=== PATIENT | male | born 1960 | race Caucasian/White ===

== ENCOUNTER 2022-08-09 18:49 | Observation (INO) | payer BC, SELFPAY ==
--- NOTE | 2022-08-09 | ECG_ITS ---
Test Reason : DIZZINESS Blood Pressure : / mmHG Vent. Rate : 072 BPM Atrial Rate : 072 BPM P-R Int : 152 ms QRS Dur : 088 ms QT Int : 404 ms P-R-T Axes : 062 063 040 degrees QTc Int : 442 ms Normal sinus rhythm Normal ECG When compared with ECG of 02-DEC-2013 09:47, No significant change was found Referred By: Generic ED Physician Electronically Signed By:MASON VELASQUEZ MD
--- NOTE | ~2022-08-09 | CT_ITS ---
EXAMINATION: CT HEAD WITHOUT CONTRAST CLINICAL INFORMATION: Altered mental status. COMPARISON: None. TECHNIQUE: Contiguous axial imaging was performed from the skull base to vertex without intravenous administration of contrast. This CT examination was performed using dose optimization techniques as appropriate, variously including the following: *Automated exposure control *Adjustment of mA and/or kV according to patient size (this includes techniques or standardized protocols for targeted exams where dose is matched to indication/reason for exam; i.e. extremities or head) *Use of iterative reconstruction technique DLP: 684 mGy-cm FINDINGS: Age indeterminate hypodensities in the bilateral basal ganglia, largest measuring 0.8 cm on the right side (5:169). There is no evidence of acute intracranial hemorrhage or edematous territorial infarction. Scattered hypoattenuation in the periventricular and deep white matter are consistent with moderate microangiopathy. Cantrell-white matter differentiation is preserved. Proportional prominence of the ventricles and sulcal spaces. No evidence for obstructive hydrocephalus. No abnormal mass effect or midline shift. No extra-axial fluid collections. Nonspecific focal skin nodule in the right high frontal scalp (7:61). No acute osseous abnormalities. Mucosal thickening of the frontal sinuses and ethmoid air cells. No air-fluid levels. The mastoids and middle ear cavities are clear. CT/CT head/brain wo IV con IMPRESSION: 1. Age indeterminate small hypodensities in the bilateral basal ganglia. If an acute cerebrovascular accident is suspected, recommend correlation with an MR of the brain. 2. No acute intracranial hemorrhage or edematous territorial infarction. 3. Indeterminate focal nodular-like skin thickening in the right high frontal scalp, recommend correlation with physical examination.
--- NOTE | ~2022-08-09 | CT_ITS ---
EXAMINATION: CT ANGIOGRAM HEAD CT ANGIOGRAM NECK CLINICAL INFORMATION: dizziness COMPARISON: None. TECHNIQUE: Initial noncontrast nursing educator imaging of the head and neck was performed. Comparison is made with noncontrast head CT from earlier today. Test bolus sequences followed by intravenous administration 70 mL of Omnipaque 350. Helical imaging was performed in the axial plane from the aortic arch to the skull vertex. Delayed postcontrast imaging of the head was also performed. The data was processed at the lead technologist in cytogenetics's workstation for generation of MIP sequences. Angled MIPs and volume rendered reformatted images were also generated at an offline 3D workstation. Stenoses are assessed in accordance with NASCET criteria unless otherwise indicated. This CT examination was performed using dose optimization techniques as appropriate, variously including the following: *Automated exposure control *Adjustment of mA and/or kV according to patient size (this includes techniques or standardized protocols for targeted exams where dose is matched to indication/reason for exam; i.e. extremities or head) *Use of iterative reconstruction technique DLP: 1531.8 mGy-cm mGy-cm FINDINGS: CT HEAD: Noncontrast head CT findings are discussed separately. No pathologic intra-axial enhancement within limitations of CT or regional oligemia. CTA HEAD: Limited examination due to arteriovenous timing of contrast bolus. The internal carotid arteries are patent with minimal calcific plaque along the right distal cavernous/supraclinoid and left supraclinoid internal carotid arteries. 1.2 mm posteriorly projecting vascular protrusion arising from the distal communicating left ICA with a vessel arising from its apex, likely infundibular origin of the anterior choroidal artery. The MCA vascular complexes are normal bilaterally. Dominant right A1 segment with a congenitally hypoplastic/aplastic left A1 segment. The intradural vertebral arteries are patent. The basilar artery is normal. The posterior cerebral arteries are widely patent. No proximal large vessel occlusion. No aneurysms and no high flow vascular malformations. No evidence of dural arteriovenous fistula. Timing of the contrast bolus allows assessment of the major dural venous sinuses, which all opacify normally CTA NECK: Classic 3 vessel branching pattern of the aortic arch. Origins of the great vessels are widely patent. The common carotid arteries are widely patent, noting mild eccentric fibrofatty plaque along the mid to distal segments. Mild fibrofatty plaque at the bilateral common carotid bifurcations extending into the right greater than left carotid bulbs without hemodynamically significant stenosis. The left vertebral artery is dominant. There is fibrofatty plaque contributing to focal severe stenosis of the right V1 segment and mild luminal narrowing of the left at V1 segment, with otherwise normal contrast opacification along the extracranial vertebral arteries. CT NECK: Dentulous maxillary alveolar ridge. Carious left mandibular canine tooth with periapical lucency. Symmetric lobulated soft tissue along the base of tongue likely normal tonsillar tissue with tonsillith on the left. Left-sided vallecular cysts contacting the left lingual surface of the epiglottis. 5 mm lobulated enhancing soft tissue is seen along the right aspect of the right glossoepiglottic fold and lingual surface of the right epiglottis, which can be correlated with direct visual inspection (image 746, series 6). Symmetric medialization of the right aryepiglottic fold and prominence of the right pyriform sinus without asymmetric prominence of the right laryngeal vestibule as would be expected in right vocal cord paresis. The salivary glands are unremarkable. The thyroid gland is unremarkable. No pathologically enlarged cervical chain lymph nodes. There is mild chronic height loss of the C6 vertebral body. Multilevel cervical spondylosis with varying degrees of moderate to high-grade neural foraminal narrowing. Centrilobular and paraseptal emphysema. CT/CT angio head neck IMPRESSION: 1. Eccentric fibrofatty plaque contributing to focal severe stenosis of the right V1 and mild luminal narrowing of the left V1 vertebral arteries, otherwise no significant craniocervical steno-occlusive disease. 2. 5 mm enhancing soft tissue is seen along the right aspect of the right glossoepiglottic fold and lingual surface of the right epiglottis can be correlated with direct visual inspection. 3. Carious left mandibular canine tooth with periapical lucency. Recommend correlation with dental exam. 4. Emphysema.
--- NOTE | ~2022-08-09 | MR_ITS ---
EXAMINATION: MR BRAIN WITHOUT CONTRAST CLINICAL INFORMATION: Cerebrovascular accident. COMPARISON: CTA head and neck from 08/09/2022. TECHNIQUE: MRI of the brain was obtained using routine sequences without contrast. FINDINGS: No focal restricted diffusion is demonstrated to suggest acute or subacute cerebral ischemia. There is a region of chronic encephalomalacia centered within the right steen radiata and basal ganglia with hemosiderin staining. Additional chronic lacunar infarcts of the bilateral lentiform nuclei and left thalamus. No evidence of acute hemorrhagic products on heme-sensitive imaging. Scattered and partially confluent periventricular, deep white matter, and brainstem T2 FLAIR hyperintensities consistent with moderate underlying microangiopathy. Ex vacuo dilatation of the frontal horn of the right lateral ventricle. Otherwise, proportional prominence of the ventricles and sulcal spaces without evidence of obstructive hydrocephalus. No abnormal mass effect. No midline shift. Normal appearance of the pituitary gland. Normal positioning of the cerebellar tonsils. Normal arterial and venous vascular flow voids are present. Normal, homogeneous marrow signal. Mild mucosal thickening of the paranasal sinuses. No signal abnormalities within the mastoids. MR/MR head/brain wo con IMPRESSION: 1. No acute intracranial abnormalities. 2. Chronic encephalomalacia of the right steen radiata/basal ganglia with hemosiderin staining. Additional small chronic lacunar infarcts of the deep nuclei. Moderate underlying microangiopathy and generalized cerebral volume loss.
--- NOTE | ~2022-08-09 | US_ITS ---
EXAMINATION: US EXTRACRANIAL CAROTID DUPLEX, BILATERAL CLINICAL INFORMATION: Dizziness with vertebral artery stenosis on CTA COMPARISON: CTA from 08/17/2022 TECHNIQUE: Real-time ultrasound and Doppler techniques (integrating B-mode 2-D vascular images, Doppler spectral analysis and color-flow Doppler imaging) were utilized to interrogate the extracranial carotid arteries, the vertebral arteries and proximal subclavian arteries bilaterally. The degree of stenosis is determined by criteria similar to NASCET. FINDINGS: Right Side: 1. There is minimal atherosclerotic plaque seen in the bifurcation/proximal ICA region. 2. The common carotid artery PSV proximally is 79.5 cm/s and distally 74.7 cm/s. 3. The proximal internal carotid artery velocities are 51.1 cm/s systolic and 17.2 cm/s diastolic. 4. The proximal external carotid artery PSV is 94.4 cm/s. 5. The vertebral artery shows antegrade flow. Velocity in the proximal segment measures 42.8 cm/s. Flow within the mid and distal segments are markedly dampened and decreased with velocities measuring 10.1 cm/s 6. The subclavian artery waveforms are normal. Left Side: 1. There is no significant atherosclerotic plaque seen in the bifurcation/proximal ICA region. 2. The common carotid artery PSV proximally is 91.3 cm/s and distally 75.2 cm/s. 3. The proximal internal carotid artery velocities are 70.8 cm/s systolic and 23.0 cm/s diastolic. 4. The proximal external carotid artery PSV is 96.9 cm/s. 5. The vertebral artery shows antegrade flow. Normal velocities and waveforms seen throughout the vertebral artery with peak systolic velocity measuring 81 cm/s. 6. The subclavian artery waveforms are normal. US/US carotid duplex BI IMPRESSION: 1. RIGHT: Minimal, non-hemodynamically significant stenosis of the proximal right internal carotid artery corresponding to a 0-49% stenosis by velocity criteria. 2. LEFT: Normal left internal carotid artery without atherosclerotic plaque or hemodynamically significant stenosis. 3. Markedly dampened waveforms and velocities seen in the mid and distal segments of the right vertebral artery consistent with nonvisualized severe stenosis more proximally. Normal waveforms and velocities seen in the left vertebral artery
--- NOTE | ~2022-08-09 | XR_ITS ---
EXAMINATION: XR CHEST CLINICAL INFORMATION: Chest pain COMPARISON: None TECHNIQUE: 2 views of the chest were obtained. FINDINGS: No significant abnormality is noted involving the heart, lungs, mediastinum, bony thorax or soft tissues. XR/XR chest 2V IMPRESSION: Unremarkable chest examination.
[2022-08-09 19:51] VITALS: BP 186/99; PULSE 66; RESP 16; TEMP 37; O2SAT 96; BMI 25.7
--- NOTE | 2022-08-09 20:02 | ED.GENADULT ---
HPI - General Adult General Chief complaint: Dizziness Stated complaint: Dizziness sent by primary care DR Time Seen by Provider: 08/09/22 21:00 Related Data Home Medications Medication Instructions Recorded Confirmed omeprazole 20 mg capsule,delayed 1 cap PO DAILY 08/10/22 08/10/22 release warfarin 5 mg tablet 7.5 mg PO DAILY 08/10/22 08/10/22 Allergies Allergy/AdvReac Type Severity Reaction Status Date / Time lisinopril [From ZESTRIL] Allergy Unknown UNK Unverified 02/25/20 16:27 [facility] Past Medical History Medical History GERD (gastroesophageal reflux disease) Hypercoagulable state Social History Social History Household Members: Significant Other Housing: House Do you presently have visiting nurse or other home services: No Alcohol intake: never Patient Tobacco Use Status: Current everyday Tobacco user Tobacco use type: Cigarette Cigarette Packs Per Day: 1 Cigarettes Per Day: 20.0 Years Smoked: 50 Substance Use Type: Marijuana Physical Exam ED Vital Signs: Vital Signs - 24 hr 08/09/22 19:51 Temperature 98.6 F Pulse Rate 66 Respiratory Rate 16 Blood Pressure 186/99 H Pulse Oximetry 96 Oxygen Delivery Method Room Air BMI result Body Mass Index 25.7 Course Course Course Narrative: 62-year-old male presents for evaluation of dizziness that started yesterday. He denies feeling the room is spinning, denies history of vertigo. He is ambulatory but feels that he cannot walk in a straight line. No focal neuro deficits. Plan for labs, EKG further workup as indicated Medications Administered Discontinued Medications Generic Name Dose Route Start Last Admin Trade Name Freq PRN Reason Stop Dose Admin Iohexol 85 ml 08/09/22 23:26 08/09/22 23:27 Iohexol 350 Mg/Ml 100 Ml Infus..Btl IV 08/09/22 23:27 85 ml ONCE ONE Administration Sodium Chloride 3 ml 08/10/22 08:00 08/10/22 09:59 0.9 % Sodium Chloride Flush 3 Ml Syringe IVFLUSH Not Given [facility] Medical Decision Making Lab Data 08/10/22 05:26 08/10/22 05:26 Labs: Lab Results 08/09/22 08/09/22 08/09/22 Range/Units 20:23 20:23 21:13 WBC 9.7 (4.8-10.8) X10*3/uL RBC 5.90 H (4.60-5.80) X10*6/uL Hgb 17.8 (14.0-18.0) g/dl Hct 54.5 H (42.0-52.0) % MCV 92.4 (80.0-98.0) fL MCH 30.2 (27.0-33.0) pg MCHC 32.7 (31.0-36.0) g/dl RDW 13.8 (11.0-16.0) % Plt Count 224 (160-400) X10*3/uL MPV 9.7 (9.4-12.4) fL Immature Gran % (Auto) 0.3 (0.0-0.4) % Neut % (Auto) 62.2 (45-73) % Lymph % (Auto) 27.7 (20-40) % [place] % (Auto) 6.0 (2-11) % Eos % (Auto) 2.8 (0-4) % Baso % (Auto) 1.0 (0-2) % Lymph # (Auto) 2.7 (1.2-4.9) X10*3/uL [place] # (Auto) 0.6 (0.1-1.2) X10*3/uL Eos # (Auto) 0.3 (0.0-0.4) X10*3/uL Baso # (Auto) 0.1 (0.0-0.2) X10*3/uL Abs Immat Gran (auto) 0.03 (0.00-0.03) X10*3/uL Absolute Neuts (auto) 6.0 (2.0-8.3) x10*3/uL Absolute Nucleated RBC 0.000 (0.0-0.012) X10*3/uL Nucleated RBC % (auto) 0.0 (0.0-0.2) /100WBC PT 26.1 H (10.0-13.1) SEC INR 2.2 H (0.9-1.1) APTT 43.7 H (26.0-36.4) SEC Sodium (135-145) mmol/L Potassium (3.3-5.1) mmol/L Chloride (96-108) mmol/L Carbon Dioxide (22-29) mmol/L Anion Gap (12-20) BUN (9-16) mg/dL Creatinine (0.5-1.4) mg/dL Estim Creat Clear Calc Estimated GFR Random Glucose (60-115) mg/dL Calcium (8.4-10.2) mg/dL Magnesium (1.6-2.6) mg/dL Total Bilirubin (0.0-1.0) mg/dL AST (5-37) U/L ALT (0-40) U/L Alkaline Phosphatase (39-117) U/L Troponin I High Sens < 3.5 (<3.5-35.0) ng/L Total Protein (6.5-8.0) g/dL Albumin (3.5-5.0) g/dL Lipase (8-78) U/L 08/09/22 Range/Units 21:53 WBC (4.8-10.8) X10*3/uL RBC (4.60-5.80) X10*6/uL Hgb (14.0-18.0) g/dl Hct (42.0-52.0) % MCV (80.0-98.0) fL MCH (27.0-33.0) pg MCHC (31.0-36.0) g/dl RDW (11.0-16.0) % Plt Count (160-400) X10*3/uL MPV (9.4-12.4) fL Immature Gran % (Auto) (0.0-0.4) % Neut % (Auto) (45-73) % Lymph % (Auto) (20-40) % [place] % (Auto) (2-11) % Eos % (Auto) (0-4) % Baso % (Auto) (0-2) % Lymph # (Auto) (1.2-4.9) X10*3/uL [place] # (Auto) (0.1-1.2) X10*3/uL Eos # (Auto) (0.0-0.4) X10*3/uL Baso # (Auto) (0.0-0.2) X10*3/uL Abs Immat Gran (auto) (0.00-0.03) X10*3/uL Absolute Neuts (auto) (2.0-8.3) x10*3/uL Absolute Nucleated RBC (0.0-0.012) X10*3/uL Nucleated RBC % (auto) (0.0-0.2) /100WBC PT (10.0-13.1) SEC INR (0.9-1.1) APTT (26.0-36.4) SEC Sodium 142 (135-145) mmol/L Potassium 3.9 (3.3-5.1) mmol/L Chloride 107 (96-108) mmol/L Carbon Dioxide 23 (22-29) mmol/L Anion Gap 16 (12-20) BUN 15 (9-16) mg/dL Creatinine 1.02 (0.5-1.4) mg/dL Estim Creat Clear Calc 89.5 Estimated GFR > 60 Random Glucose 82 (60-115) mg/dL Calcium 8.8 (8.4-10.2) mg/dL Magnesium 2.0 (1.6-2.6) mg/dL Total Bilirubin 0.6 (0.0-1.0) mg/dL AST 13 (5-37) U/L ALT 9 (0-40) U/L Alkaline Phosphatase 110 (39-117) U/L Troponin I High Sens (<3.5-35.0) ng/L Total Protein 6.7 (6.5-8.0) g/dL Albumin 4.2 (3.5-5.0) g/dL Lipase 42 (8-78) U/L Discharge Plan Discharge Clinical Impression: Dizziness Patient Disposition: Admitted As Inpatient Interventions: Admission Worksheet (ED) Last Done: 08/10/22 09:17 Discharge Date/Time: 08/10/22 09:17
[2022-08-09 20:29] LABS: MANUAL DIFF FLAG NO
[2022-08-09 20:31] LABS: Basophils Absolute Auto 0.1 X10*3/uL (0.0-0.2); Eosinophils Absolute Auto 0.3 X10*3/uL (0.0-0.4); Eosinophils Percent Auto 2.8 % (0-4); Hematocrit 54.5 % (42.0-52.0); Hemoglobin 17.8 g/dl (14.0-18.0); Imm Gran Abs Auto 0.03 X10*3/uL (0.00-0.03); Imm Gran Pct Auto 0.3 % (0.0-0.4); Lymphocytes Absolute Auto 2.7 X10*3/uL (1.2-4.9); Lymphocytes Percent Auto 27.7 % (20-40); Mean Corpuscular HGB Conc 32.7 g/dl (31.0-36.0); Mean Corpuscular Hemoglobin 30.2 pg (27.0-33.0); Mean Corpuscular Volume 92.4 fL (80.0-98.0); Mean Platelet Volume 9.7 fL (9.4-12.4); Monocytes Absolute Auto 0.6 X10*3/uL (0.1-1.2); Neutrophils Percent Auto 62.2 % (45-73); Platelet Count 224 X10*3/uL (160-400); Red Cell Distribution Width 13.8 % (11.0-16.0); White Blood Count 9.7 X10*3/uL (4.8-10.8)
[2022-08-09 20:57] LABS: Troponin-I High Sensitivity < 3.5 ng/L (<3.5-35.0)
[2022-08-09 21:15] VITALS: BP 149/82; PULSE 59
[2022-08-09 21:16] VITALS: BP 159/91; PULSE 64
[2022-08-09 21:18] VITALS: BP 152/95; PULSE 78
[2022-08-09 21:20] VITALS: BP 165/98; PULSE 70; RESP 15; TEMP 36.7; O2SAT 98
--- NOTE | 2022-08-09 21:23 | MHC.EDTECH ---
pt repeated labs drawn and sent to lab ,orthostatics vitals sign done ,pt watching television ,pt at bedside ,this pct offer pt warm blanket , But pt said he was ok .
[2022-08-09 21:24] LABS: INTERNATIONAL NORM RATIO 2.2 (0.9-1.1); Prothrombin Time 26.1 SEC (10.0-13.1)
[2022-08-09 21:26] LABS: Partial Thromboplastin Time 43.7 SEC (26.0-36.4)
[2022-08-09 22:23] LABS: Alanine Aminotransferase 9 U/L (0-40); Albumin Level 4.2 g/dL (3.5-5.0); Alkaline Phosphatase 110 U/L (39-117); Anion Gap 16 (12-20); Aspartate Amino Transferase 13 U/L (5-37); Bilirubin Total 0.6 mg/dL (0.0-1.0); Blood Urea Nitrogen 15 mg/dL (9-16); Calcium 8.8 mg/dL (8.4-10.2); Carbon Dioxide 23 mmol/L (22-29); Chloride 107 mmol/L (96-108); Creatinine Clr Calc Pharmacy 89.5; Estimated Glomerular Filt Rate > 60; Glucose Random 82 mg/dL (60-115); Lipase 42 U/L (8-78); Potassium 3.9 mmol/L (3.3-5.1); Sodium 142 mmol/L (135-145); Total Protein 6.7 g/dL (6.5-8.0)
[2022-08-09] MEDS: iohexoL 350 MG/ML 100 ML INFUS..BTL 85 ML IV (23:27)
[2022-08-09 23:47] VITALS: BP 151/98; PULSE 69; RESP 24; TEMP 37; O2SAT 98
--- NOTE | 2022-08-10 00:40 | ED_ITS ---
HPI - Dizziness General Chief Complaint: Dizziness Stated Complaint: Dizziness sent by primary care Time Seen by Provider: 08/09/22 21:00 History of Present Illness HPI Narrative: Patient is a 62-year-old male with a history of antithrombin 3 currently on warfarin presented today with having dizziness. Patient claims the dizziness makes him fall easily. Not exactly spinning. Feels not quite right. Patient claims the symptoms started approximately 36 hours ago. Been compliant with his medication. No chest pain or shortness of breath. No nausea no vomiting. No focal weakness. No changes in medication. No change in dose of medication. Related Data Allergies Allergy/AdvReac Type Severity Reaction Status Date / Time lisinopril [From ZESTRIL] Allergy Unknown UNK Unverified 02/25/20 16:27 ABT Allergy Unknown UNKNOWN Uncoded 02/25/20 16:27 Review of Systems Review of Systems: Positive dizziness Yes all other systems are reviewed and are negative PMFSH Past Medical History Attestation statement: The following information was validated with the patient. Social History Social History Advance Directives: No Advance Directives Information Provided: No Physical Exam Vital Signs: Vital Signs: Last Vital Signs Temp 98.6 F 08/09/22 23:47 Pulse 69 08/09/22 23:47 Resp 24 H 08/09/22 23:47 BP 151/98 H 08/09/22 23:47 Pulse Ox 98 08/09/22 23:47 O2 Del Method 08/09/22 23:47 BMI result Body Mass Index 25.7 Appearance: Alert. Oriented X3. No acute distress. Eyes: Pupils equal, round and reactive to light. ENT: Pharynx normal. Neck: Normal inspection. Neck supple. No lymph nodes noted. No crepitus CVS: Normal heart rate and rhythm. Pulses normal. Normal S1 and S2 Respiratory: No respiratory distress. Breath sounds normal. No Wheezing. No rales Abdomen: Soft and nontender. No rigidity. No distention. good BS x4 Skin: Skin warm and dry. Normal skin color. Normal skin turgor. Extremities: No lower extremity edema. Neurovascular intact to all extremities. No Lacerations. No Rash Neuro: Oriented X 3. No motor deficit. No sensory deficit. Moving all extermities. No slurred speech NIH Stroke Scale Internal: Initial- Upon Arrival Time: 00:46 Level of Consciousness: Alert Level of Consciousness Questions: Answers both questions correctly Level of Consciousness Commands: Performs both tasks correctly Best Gaze: Normal Visual: No visual loss Facial Palsy: Normal Motor Arm (Right): No drift Motor Arm (Left): No drift Motor Leg (Right): No drift Motor Leg (Left): No drift Limb Ataxia: Absent Sensory: Normal Best Language: No aphasia Dysarthia: Normal Extinction and Inattention: No abnormality Score: 0 Medications Administered Discontinued Medications Generic Name Dose Route Start Last Admin Trade Name Khoa PRN Reason Stop Dose Admin Iohexol 85 ml 08/09/22 23:26 08/09/22 23:27 Iohexol 350 Mg/Ml 100 Ml Infus..Btl IV 08/09/22 23:27 85 ml ONCE ONE Administration Medical Decision Making Medical Decision Making [facility] Narrative: Patient's NIH stroke scale was 0. Has dizziness. On exam there is question finger-nose abnormality noted. CT scan of the head was grossly negative for any acute evidence of bleeding. CTA of the head and neck showed possible vertebral stenosis. Question posterior circulation issues. Patient not a candidate for tPA as he is therapeutic on Coumadin symptoms greater than 30 hours. Patient not a candidate for endovascular treatment retrieval as no large vessel o cclusion noted. Patient's symptoms greater than 24 hours. Will admit patient for further evaluation. CT scan showed no evidence of bleeding. No evidence of fracture. Patient is neurologically intact. Consult Healthcare Provider Management of the patient was discussed with: Hospitalist Lab Data [facility] Lab Attestation statement: I reviewed the patient's lab results. 08/09/22 20:23 08/09/22 21:53 Labs: Lab Results 08/09/22 08/09/22 08/09/22 Range/Units 20:23 20:23 21:13 WBC 9.7 (4.8-10.8) X10*3/uL RBC 5.90 H (4.60-5.80) X10*6/uL Hgb 17.8 (14.0-18.0) g/dl Hct 54.5 H (42.0-52.0) % MCV 92.4 (80.0-98.0) fL MCH 30.2 (27.0-33.0) pg MCHC 32.7 (31.0-36.0) g/dl RDW 13.8 (11.0-16.0) % Plt Count 224 (160-400) X10*3/uL MPV 9.7 (9.4-12.4) fL Immature Gran % (Auto) 0.3 (0.0-0.4) % Neut % (Auto) 62.2 (45-73) % Lymph % (Auto) 27.7 (20-40) % [place] % (Auto) 6.0 (2-11) % Eos % (Auto) 2.8 (0-4) % Baso % (Auto) 1.0 (0-2) % Lymph # (Auto) 2.7 (1.2-4.9) X10*3/uL [place] # (Auto) 0.6 (0.1-1.2) X10*3/uL Eos # (Auto) 0.3 (0.0-0.4) X10*3/uL Baso # (Auto) 0.1 (0.0-0.2) X10*3/uL Abs Immat Gran (auto) 0.03 (0.00-0.03) X10*3/uL Absolute Neuts (auto) 6.0 (2.0-8.3) x10*3/uL Absolute Nucleated RBC 0.000 (0.0-0.012) X10*3/uL Nucleated RBC % (auto) 0.0 (0.0-0.2) /100WBC PT 26.1 H (10.0-13.1) SEC INR 2.2 H (0.9-1.1) APTT 43.7 H (26.0-36.4) SEC Sodium (135-145) mmol/L Potassium (3.3-5.1) mmol/L Chloride (96-108) mmol/L Carbon Dioxide (22-29) mmol/L Anion Gap (12-20) BUN (9-16) mg/dL Creatinine (0.5-1.4) mg/dL Estim Creat Clear Calc Estimated GFR Random Glucose (60-115) mg/dL Calcium (8.4-10.2) mg/dL Magnesium (1.6-2.6) mg/dL Total Bilirubin (0.0-1.0) mg/dL AST (5-37) U/L ALT (0-40) U/L Alkaline Phosphatase (39-117) U/L Troponin I High Sens < 3.5 (<3.5-35.0) ng/L Total Protein (6.5-8.0) g/dL Albumin (3.5-5.0) g/dL Lipase (8-78) U/L 08/09/22 Range/Units 21:53 WBC (4.8-10.8) X10*3/uL RBC (4.60-5.80) X10*6/uL Hgb (14.0-18.0) g/dl Hct (42.0-52.0) % MCV (80.0-98.0) fL MCH (27.0-33.0) pg MCHC (31.0-36.0) g/dl RDW (11.0-16.0) % Plt Count (160-400) X10*3/uL MPV (9.4-12.4) fL Immature Gran % (Auto) (0.0-0.4) % Neut % (Auto) (45-73) % Lymph % (Auto) (20-40) % [place] % (Auto) (2-11) % Eos % (Auto) (0-4) % Baso % (Auto) (0-2) % Lymph # (Auto) (1.2-4.9) X10*3/uL [place] # (Auto) (0.1-1.2) X10*3/uL Eos # (Auto) (0.0-0.4) X10*3/uL Baso # (Auto) (0.0-0.2) X10*3/uL Abs Immat Gran (auto) (0.00-0.03) X10*3/uL Absolute Neuts (auto) (2.0-8.3) x10*3/uL Absolute Nucleated RBC (0.0-0.012) X10*3/uL Nucleated RBC % (auto) (0.0-0.2) /100WBC PT (10.0-13.1) SEC INR (0.9-1.1) APTT (26.0-36.4) SEC Sodium 142 (135-145) mmol/L Potassium 3.9 (3.3-5.1) mmol/L Chloride 107 (96-108) mmol/L Carbon Dioxide 23 (22-29) mmol/L Anion Gap 16 (12-20) BUN 15 (9-16) mg/dL Creatinine 1.02 (0.5-1.4) mg/dL Estim Creat Clear Calc 89.5 Estimated GFR > 60 Random Glucose 82 (60-115) mg/dL Calcium 8.8 (8.4-10.2) mg/dL Magnesium 2.0 (1.6-2.6) mg/dL Total Bilirubin 0.6 (0.0-1.0) mg/dL AST 13 (5-37) U/L ALT 9 (0-40) U/L Alkaline Phosphatase 110 (39-117) U/L Troponin I High Sens (<3.5-35.0) ng/L Total Protein 6.7 (6.5-8.0) g/dL Albumin 4.2 (3.5-5.0) g/dL Lipase 42 (8-78) U/L Independent Interpretation I performed an independent interpretation of an: EKG Interpretation: My interpretation patient's EKG showed a sinus pattern heart rate is 70 LA QRS QTC within normal limits there is no acute ST segment elevation noted Radiology Impression Discussion of test interpretation with radiology: I have reviewed the radiologist's reading. Independent Historian Clinical information obtained from an independent historian. History obtained from or confirmed by: Spouse External Record Review External record reviewed: Inpatient record Chronic Conditions Antithrombin 3 Discharge Plan Discharge Clinical Impression: Dizziness Patient Disposition: Admitted As Inpatient
--- NOTE | 2022-08-10 00:43 | PM.IMHP ---
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 Patient states it started abruptly on the day of presentation. He has had episodes of dizziness years ago but the only lasted for a while. This time patient states that it lasted for almost the whole day and hence he decided to present to the ER. Had difficulty walking due to the dizziness. No vertigo. No syncope or seizure. Patient states this has never happened before. He is compliant with warfarin. No focal extremity weakness or facial droop. Patient denies fever, chills, chest discomfort, palpitations, shortness of breath, abdominal pain, changes in urinary or bowel habits. In the emergency department, CTA with focal severe stenosis of right V1 Review of Systems Constitutional: Constitutional: Reports no additional constitutional complaints ENT: Reports dizziness Cardiovascular: Cardiovascular: Reports no additional cardiovascular complaints Respiratory: Respiratory: Reports no additional respiratory complaints Gastrointestinal: Gastrointestinal: Reports no additional gastrointestinal complaints Genitourinary: Genitourinary: Reports no additional male genitourinary complaints Neurologic: Reports dizziness PMFSH Medical History GERD (gastroesophageal reflux disease) Hypercoagulable state Pertinent family history: No family history of CAD Social History Advance Directives: No Advance Directives Information Provided: No Meds Allergies Allergy/AdvReac Type Severity Reaction Status Date / Time lisinopril [From ZESTRIL] Allergy Unknown UNK Unverified 02/25/20 16:27 ABT Allergy Unknown UNKNOWN Uncoded 02/25/20 16:27 Active Medications: Current Medications Acetaminophen (Acetaminophen 325 Mg Tablet) 650 mg PO Q6H PRN PRN Reason: Pain, Mild (Pain Scale 1-3) Melatonin (Melatonin 3 Mg Tablet) 6 mg PO BEDTIME PRN PRN Reason: Insomnia Ondansetron HCl (Ondansetron Hcl 4 Mg/2 Ml Vial) 4 mg IVPUSH Q8H PRN PRN Reason: Nausea and Vomiting Pharmacy Consult (Consult Rx Perform Med Rec) 1 each MISCELLANE ONCE PRN PRN Reason: Consult order Sodium Chloride (0.9 % Sodium Chloride Flush 3 Ml Syringe) 3 ml IVFLUSH QSHIFT SAPNA Physical Exam Vital Signs and Narrative: Vital Signs: Last Vital Signs Temp 98.6 F 08/09/22 23:47 Pulse 69 08/09/22 23:47 Resp 24 H 08/09/22 23:47 BP 151/98 H 08/09/22 23:47 Pulse Ox 98 08/09/22 23:47 O2 Del Method 08/09/22 23:47 BMI result Body Mass Index 25.7 Middle-aged male lying in bed in no distress Neck supple, no JVD Regular rate and rhythm, S1-S2 heard Regular breath sounds bilaterally, no wheezing or crackles appreciated Abdomen soft nontender, no guarding, no rigidity Patient is awake, alert and oriented to self, place, time and person ; no nystagmus, no dysdiadochokinesia, mild abnormality [id number] on the right upper extremity, no hypertonia, no facial droop, strength equal in bilateral upper and lower extremity, tongue and uvula midline Psych: Normal mood No pedal edema Results Labs 08/09/22 20:23 08/09/22 21:53 Labs: Laboratory Results - last 24 hr 08/09/22 08/09/22 08/09/22 20:23 20:23 21:13 MCV 92.4 MCH 30.2 MCHC 32.7 RDW 13.8 Plt Count 224 MPV 9.7 Immature Gran % (Auto) 0.3 Neut % (Auto) 62.2 Lymph % (Auto) 27.7 [place] % (Auto) 6.0 Eos % (Auto) 2.8 Baso % (Auto) 1.0 Lymph # (Auto) 2.7 [place] # (Auto) 0.6 Eos # (Auto) 0.3 Baso # (Auto) 0.1 Abs Immat Gran (auto) 0.03 Absolute Neuts (auto) 6.0 Absolute Nucleated RBC 0.000 Nucleated RBC % (auto) 0.0 PT 26.1 H INR 2.2 H APTT 43.7 H Anion Gap Estim Creat Clear Calc Estimated GFR Random Glucose Calcium Magnesium Total Bilirubin AST ALT Alkaline Phosphatase Troponin I High Sens < 3.5 Total Protein Albumin Lipase 08/09/22 21:53 MCV MCH MCHC RDW Plt Count MPV Immature Gran % (Auto) Neut % (Auto) Lymph % (Auto) [place] % (Auto) Eos % (Auto) Baso % (Auto) Lymph # (Auto) [place] # (Auto) Eos # (Auto) Baso # (Auto) Abs Immat Gran (auto) Absolute Neuts (auto) Absolute Nucleated RBC Nucleated RBC % (auto) PT INR APTT Anion Gap 16 Estim Creat Clear Calc 89.5 Estimated GFR > 60 Random Glucose 82 Calcium 8.8 Magnesium 2.0 Total Bilirubin 0.6 AST 13 ALT 9 Alkaline Phosphatase 110 Troponin I High Sens Total Protein 6.7 Albumin 4.2 Lipase 42 Imaging Radiologist's Impressions: Impressions Chest X-Ray 08/09/22 20:35 IMPRESSION: Unremarkable chest examination. Head CT 08/09/22 22:38 IMPRESSION: 1. Age indeterminate small hypodensities in the bilateral basal ganglia. If an acute cerebrovascular accident is suspected, recommend correlation with an MR of the brain. 2. No acute intracranial hemorrhage or edematous territorial infarction. 3. Indeterminate focal nodular-like skin thickening in the right high frontal scalp, recommend correlation with physical examination. Head/Neck CTA 08/09/22 23:10 IMPRESSION: 1. Eccentric fibrofatty plaque contributing to focal severe stenosis of the right V1 and mild luminal narrowing of the left V1 vertebral arteries, otherwise no significant craniocervical steno-occlusive disease. 2. 5 mm enhancing soft tissue is seen along the right aspect of the right glossoepiglottic fold and lingual surface of the right epiglottis can be correlated with direct visual inspection. 3. Carious left mandibular canine tooth with periapical lucency. Recommend correlation with dental exam. 4. Emphysema. 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 #. Dizziness: CTA with right V1 severe stenosis. Obtaining MRI to rule out CVA and central etiology of dizziness. Consulting vascular surgery. Further workup based on MRI results #. Antithrombin 3 deficiency on Coumadin #. GERD on PPI Med rec pending DVT prophylaxis: Coumadin Regular diet Full code Time Spent With Patient Time: Total time managing care of this patient today ____ minutes. Quality Stroke Does the patient have a stroke diagnosis?: No VTE Prior VTE?: No VTE Risk Level:: Medical - moderate - high VTE Device Contraindication: Treatment Not Indicated VTE Drug Contraindication: N/A - Med Ordered
[2022-08-10 02:19] LABS: COVID-19 Test Negative (Negative); IDNOW Serial# 6674DD1D
[2022-08-10 05:42] VITALS: BP 154/91; PULSE 71; RESP 17; TEMP 37.1; O2SAT 96
--- NOTE | 2022-08-10 05:43 | MHC.EDTECH ---
pt ambulated to bathroom with a steady gait.
[2022-08-10 06:10] LABS: MANUAL DIFF FLAG NO
[2022-08-10 06:21] LABS: Basophils Absolute Auto 0.1 X10*3/uL (0.0-0.2); Basophils Percent Auto 0.7 % (0-2); Eosinophils Absolute Auto 0.3 X10*3/uL (0.0-0.4); Eosinophils Percent Auto 3.1 % (0-4); Hematocrit 51.9 % (42.0-52.0); Imm Gran Abs Auto 0.03 X10*3/uL (0.00-0.03); Imm Gran Pct Auto 0.4 % (0.0-0.4); Lymphocytes Absolute Auto 2.2 X10*3/uL (1.2-4.9); Lymphocytes Percent Auto 26.9 % (20-40); Mean Corpuscular HGB Conc 32.8 g/dl (31.0-36.0); Mean Corpuscular Hemoglobin 29.5 pg (27.0-33.0); Mean Corpuscular Volume 90.1 fL (80.0-98.0); Mean Platelet Volume 9.8 fL (9.4-12.4); Monocytes Absolute Auto 0.6 X10*3/uL (0.1-1.2); Monocytes Percent Auto 6.7 % (2-11); Neutrophils Absolute Auto 5.1 x10*3/uL (2.0-8.3); Neutrophils Percent Auto 62.2 % (45-73); Platelet Count 225 X10*3/uL (160-400); Red Blood Count 5.76 X10*6/uL (4.60-5.80); Red Cell Distribution Width 13.8 % (11.0-16.0); White Blood Count 8.2 X10*3/uL (4.8-10.8)
[2022-08-10 06:44] LABS: Anion Gap 15 (12-20); Blood Urea Nitrogen 15 mg/dL (9-16); Calcium 8.8 mg/dL (8.4-10.2); Carbon Dioxide 21 mmol/L (22-29); Chloride 108 mmol/L (96-108); Creatinine Clr Calc Pharmacy 104.9; Estimated Glomerular Filt Rate > 60; Glucose Random 79 mg/dL (60-115); Potassium 4.1 mmol/L (3.3-5.1); Sodium 140 mmol/L (135-145)
--- NOTE | 2022-08-10 07:35 | PM.EVENT ---
Event Note Date of Service: 08/10/22 Event Note: CT angiogram reviewed. Carotid ultrasound ordered. Does not appear to be source of current event, but will confirm with ultrasound. Time Spent With Patient Time: Total time managing care of this patient today ____ minutes.
[2022-08-10 08:00] VITALS: BP 156/97; PULSE 67; RESP 20; TEMP 36.8; O2SAT 96
--- NOTE | 2022-08-10 09:09 | PHA.MEDREC ---
Pharmacy Consult ? Medication Reconciliation Pharmacy has completed the medication reconciliation.
[2022-08-10 09:34] VITALS: BMI 25.7
[2022-08-10 09:47] LABS: INTERNATIONAL NORM RATIO 1.9 (0.9-1.1); Prothrombin Time 22.9 SEC (10.0-13.1)
--- NOTE | 2022-08-10 13:36 | PM.DS ---
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 Patient states it started abruptly on the day of presentation.? He has had episodes of dizziness years ago but the only lasted for a while.? This time patient states that it lasted for almost the whole day and hence he decided to present to the ER.? Had difficulty walking due to the dizziness.? No vertigo.? No syncope or seizure.? Patient states this has never happened before.? He is compliant with warfarin.? No focal extremity weakness or facial droop.? Patient denies fever, chills, chest discomfort, palpitations, shortness of breath, abdominal pain, changes in urinary or bowel habits. In the emergency department, CTA with focal severe stenosis of right V1 hospiral course: Patient was admitted for dizziness. He underwent MRI which showed no acute stroke. Likely this is self-limiting peripheral vertigo. Symptoms resolved at time of discharge. He was instantly noted to have right V1 severe stenosis which was confirmed with Doppler. He will follow up with vascular surgery as outpatient. He was also incidentally noted to have 5 mm enhancing soft tissue along the right aspect of the right glossal epiglottic fold and lingual surface of the right epiglottis. He will follow up outpatient with ENT. For his history of antithrombin 3 deficiency was continue Coumadin. Patient is feeling better will be discharged home. Time Spent with Patient Time attestation: Total time managing care of this patient today ____ minutes. Discharge coordination time: Greater than 30 minutes Quality: Safe Use of Opioids Does Pt have an Active Cancer Diagnosis on the Problem List?: No Quality: Stroke Does the patient have a stroke diagnosis?: No Physical Exam Vital Signs: Vital Signs: Last Vital Signs Temp 98.2 F 08/10/22 08:00 Pulse 67 03/03/23 08:00 Resp 20 08/10/22 08:00 BP 156/97 H 08/10/22 08:00 Pulse Ox 96 08/10/22 08:00 O2 Del Method 08/10/22 08:00 BMI result Body Mass Index 25.7 General: AO X 3, no acute distress Resp: CTA bilateral, no accessory muscles used CVS: S1,S2,RRR GI: soft, non tender, non distended Neuro: motor grossly intact, alert Psych: appropriate affect, appropriate insight DS: Data Data Completed and Pending Labs on day of discharge: Laboratory Results - last 24 hr 08/09/22 08/09/22 08/09/22 20:23 20:23 21:13 WBC 9.7 RBC 5.90 H Hgb 17.8 Hct 54.5 H MCV 92.4 MCH 30.2 MCHC 32.7 RDW 13.8 Plt Count 224 MPV 9.7 Immature Gran % (Auto) 0.3 Neut % (Auto) 62.2 Lymph % (Auto) 27.7 [place] % (Auto) 6.0 Eos % (Auto) 2.8 Baso % (Auto) 1.0 Lymph # (Auto) 2.7 [place] # (Auto) 0.6 Eos # (Auto) 0.3 Baso # (Auto) 0.1 Abs Immat Gran (auto) 0.03 Absolute Neuts (auto) 6.0 Absolute Nucleated RBC 0.000 Nucleated RBC % (auto) 0.0 PT 26.1 H INR 2.2 H APTT 43.7 H Sodium Potassium Chloride Carbon Dioxide Anion Gap BUN Creatinine Estim Creat Clear Calc Estimated GFR Random Glucose Calcium Magnesium Total Bilirubin AST ALT Alkaline Phosphatase Troponin I High Sens < 3.5 Total Protein Albumin Lipase COVID-19 (JODIE) COVID-19 Clin Com 08/09/22 08/10/22 08/10/22 21:53 02:00 05:26 WBC 8.2 RBC 5.76 Hgb 17.0 Hct 51.9 MCV 90.1 MCH 29.5 MCHC 32.8 RDW 13.8 Plt Count 225 MPV 9.8 Immature Gran % (Auto) 0.4 Neut % (Auto) 62.2 Lymph % (Auto) 26.9 [place] % (Auto) 6.7 Eos % (Auto) 3.1 Baso % (Auto) 0.7 Lymph # (Auto) 2.2 [place] # (Auto) 0.6 Eos # (Auto) 0.3 Baso # (Auto) 0.1 Abs Immat Gran (auto) 0.03 Absolute Neuts (auto) 5.1 Absolute Nucleated RBC 0.000 Nucleated RBC % (auto) 0.0 PT INR APTT Sodium 142 Potassium 3.9 Chloride 107 Carbon Dioxide 23 Anion Gap 16 BUN 15 Creatinine 1.02 Estim Creat Clear Calc 89.5 Estimated GFR > 60 Random Glucose 82 Calcium 8.8 Magnesium 2.0 Total Bilirubin 0.6 AST 13 ALT 9 Alkaline Phosphatase 110 Troponin I High Sens Total Protein 6.7 Albumin 4.2 Lipase 42 COVID-19 (JODIE) Negative COVID-19 Clin Com See Note 08/10/22 08/10/22 05:26 09:32 WBC RBC Hgb Hct MCV MCH MCHC RDW Plt Count MPV Immature Gran % (Auto) Neut % (Auto) Lymph % (Auto) [place] % (Auto) Eos % (Auto) Baso % (Auto) Lymph # (Auto) [place] # (Auto) Eos # (Auto) Baso # (Auto) Abs Immat Gran (auto) Absolute Neuts (auto) Absolute Nucleated RBC Nucleated RBC % (auto) PT 22.9 H INR 1.9 H APTT Sodium 140 Potassium 4.1 Chloride 108 Carbon Dioxide 21 L Anion Gap 15 BUN 15 Creatinine 0.87 Estim Creat Clear Calc 104.9 Estimated GFR > 60 Random Glucose 79 Calcium 8.8 Magnesium Total Bilirubin AST ALT Alkaline Phosphatase Troponin I High Sens Total Protein Albumin Lipase COVID-19 (JODIE) COVID-19 Clin Com Discharge Plan Discharge Anticipated Discharge Date/Time: 08/10/22 13:34 Patient Disposition: Home, Self-Care Discharge Diagnosis: peripheral vertigo Referrals: Maynor Wu [Physician] - 1 Week (5 mm enhancing soft tissue is seen along the right aspect of the right glossoepiglottic fold and lingual surface of the right epiglottis can be correlated with direct visual inspection.) Paulo Carmona MD [Physician] - 1 Week Humberto Alvarez MD [Primary Care Provider] - 1 Week Discharge Medications: Continued warfarin 5 mg tablet 7.5 mg PO DAILY omeprazole 20 mg capsule,delayed release(DR/EC) 1 cap PO DAILY Discharge Orders: Discharge Order (Routine); Ordered 08/10/22 Ordered By: Vini Hernandez Diet: Advance to usual diet Activity on Discharge: As tolerated Stand Alone Forms: Patient Portal Discharge page Care Plan Goals: recovery Health Concerns: verterberal artery stenosis, and abnormal cta findings Plan of Treatment: follow up vascular and ent Assessment: see above
--- NOTE | 2022-08-10 13:38 | MHC.CM.PN ---
p[t dcd home today no skilled services ordered by
== END 2022-08-10 14:40 | disposition home or self-care (01) ==
LOC: HO.ED 08-10 00:50 → HO.EDOVER 08-10 01:13 → HO.IMC 08-10 07:28
PROVIDERS: Physician Assistant; Admitting Provider Student in an Organized Health Care Education/Training Program; Emergency Provider Emergency Medicine Emergency Medical Services; PCP Internal Medicine; Visit Provider Internal Medicine
DX: H81.399 Other peripheral vertigo, unspecified ear (principal); D68.59 Other primary thrombophilia; Z79.01 Long term (current) use of anticoagulants; K21.9 Gastro-esophageal reflux disease without esophagitis
CPT/HCPCS: 36415; 70450; 70496; 70498; 70551; 71046; 80048; 80053; 83690; 83735; 84484; 85025; 85610; 85730; 87635; 93005; 93880; 99222; 99285; Q9967

== ENCOUNTER 2025-03-13 19:32 | Inpatient (IN) | payer OTHER, SELFPAY ==
--- OUTSIDE RECORDS SUMMARY | 2024-04-06 15:24 | XMS_ITS | Encounter Summary ---
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 Role Phone Humberto Alvarez MD Primary Care Provider [phone] Encounter Details Date Type Department Care Team (Late st Contact Info) Description 04/06/2024 3:24 PM EDT Hospital Encounter [facility] Candido Lange MD [address] [place] [address] Social History Tobacco Use Types Packs/Day Years Used Date Smoking Tobacco: Every Day Cigarettes Smokeless Tobacco: Never Comments:Pt smoking 1 pk of cigs daily Alcohol Use Standard Drinks/Week Comments No 0 (1 standard drink = 0.6 oz pur e alcohol) Sex and Gender Information Value Date Recorded Sex Assigned at Male 08/13/2024 2:45 PM EST Legal Sex Male 10:24 AM EST Gender Identity Male 08/13/2024 2:45 PM EST Sexual Orientation Not on file documented as of this encounter Last Filed Vital Signs Vital Sign Reading Time Taken Comments Blood Pressure 127/85 04/06/2024 3:34 PM EDT Sit ting Left arm Pulse 83 04/06/2024 3:34 PM EDT Temperature - - Respiratory Rate - - Oxygen Saturation - - Inhaled Oxygen Concentration - - Weight 95.3 kg (210 lb) 04/06/2024 3:34 PM EDT Height 188 cm (6' 2 ) 04/06/2024 3:34 PM EDT Body Mass Index 26.96 04/06/2024 3:34 PM EDT documented in this encounter Progress Notes * Candido Lange MD - 04/06/2024 3:30 PM EDT HPI: Ian Daly is a 64 y.o. year old male referred to our center by No primary care provider on file. for evaluation and management of CVA etiology mostly small vessel disease 64 yo male with PMH 63 yr. Male with past medical history of hypertension, hyperlipidemia, smoker of 1 pack/day for over 30 years, Antithrombin III deficiency, on Coumadin he follows with hematology oncology, PVD, left carotid artery stenosis.who was admitted at the [facility] on 12/23/2022 for right arm weakness, numbness. His also noticed that he has been having difficulty with gait and balance ,her MRI brain was done which did show Small acute infarct in the left steen radiata. No evidence of hemorrhage, mass or midline shift. Mild volume loss and chronic small vessel ischemic changes. he was also put on aspirin 81 mg daily when discharged from [facility], He was getting PT in [facility] prolonged discussion with the patient he has not been getting occupational or speech therapy Patient was following with vascular surgery for left carotid arterial sclerosis CTA showed less than 50% stenosis left ICA, ultrasound showed no significant stenosis, no vascular intervention is indicated at present. Patient to continue on his statin medication and Coumadin. Recheck in 1 year repeat carotid ultrasound in 1 year We did get a Holter monitor after discharge He was following with Neurology in [place] there was a discussion about stopping Coumadin patient was not comfortable with the management Patient denies any episodes concerning for stroke after discharge He denies any episodes of blurry vision double vision tingling numbness or weakness he denies any episodes of slurring the speech Patient have been having trouble with his job since the stroke he has not been working No past medical history on file. Current Outpatient Medications Medication Sig Dispense Refill ??? amLODIPine (NORVASC) tablet 2.5 mg Take 1 tablet (2.5 mg total) by mouth daily. ??? omeprazole (PriLOSEC) 20 MG capsule Take 1 capsule (20 mg total) by mouth daily. ??? atorvastatin (LIPITOR) tablet 80 mg Take 1 tablet (80 mg total) by mouth daily. ??? sertraline (ZOLOFT) 25 MG tablet TAKE 1 TABLET BY MOUTH ONCE DAILY ALONG WITH 50MG DOSE FOR TOTAL DOSE OF 75MG ONCE DAILY ??? warfarin (COUMADIN) 5 MG tablet No current facility-administered medications for this visit. 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 Neurologic Exam: BP 127/85 (BP Location: Left arm, Patient Position: Sitting, Cuff Size: Adult Regular) Pulse 83 Temp 96.8 ??F (36 ??C) (Temporal) Ht 6' 2 (1.88 m) Wt 95.3 kg (210 lb) BMI 26.96 kg/m?? MS: AOx3 CN: perrla,V1-3 intact to LT, face symmetric, bilateral SCM/trapezius 5/5, tongue/uvula/palate midline Motor: 5/5 in all extremities weaker on the right side with decrease in fine motor movement Sensation: Intact to light touch, temperature, and vibration in all extremities Reflexes: 2+ in bilateral biceps and patellae, toes downgoing bilaterally Cerebellar: FNF intact bilaterally, FFM intact bilaterally, SAMY intact bilaterally, slower on the right side difficulty tandem gait normal, romberg negative Labs: Imaging: All images were reviewed by me. MRI brain: 12/2023 Small acute infarct in the left steen radiata. No evidence of hemorrhage, mass or midline shift. Mild volume loss and chronic small vessel ischemic changes. CTA 1. ??No intracranial aneurysm. 2. ??Mild-moderate (30-49%) stenosis of the left internal carotid artery origin, with post stenotic ICA dilatation which resembles an aneurysm. 3. ??Normal intracranial arterial variants as described above, without evidence for aneurysm, stenosis, thrombus or dissection. 4. 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 ??The left A2 artery is supplied via the right A1 artery through the anterior communicating artery. 5. ??No intracranial hemorrhage or large acute territorial infarct. 6. ??Moderate microangiopathic disease. ??If symptoms persist or clinical suspicion warrants, follow-up with diffusion weighted MRI may be more sensitive. A/P: Ian Daly is a 64 y.o. year old male with past medical history of 63 yr. Male with past medical history of hypertension, hyperlipidemia, smoker of 1 pack/day for over 30 years, AntithrombinIII deficiency, on Coumadin he follows with hematology oncology, PVD, left carotid artery stenosisreferred to our center by No primary care provider on file. for evaluation and management of poststroke patient did have a left steen radiata infarct etiology mostly with the patient risk factors small vessel disease, workup in the hospital with left carotid stenosis cleared by vascular surgery for no intervention , Prolonged discussion and education about secondary stroke prevention with the patient patient does have risk factors of smoking and he is not adamant about stopping smoking discussed the risks with the patient PCP to provide resources we also discussed lifestyle modification exercise and diet -continue anticoagulation and statin -Advised Mediterranean diet and activity/exercise for at least 30 min daily -Blood pressure control, goal < 130/80 but avoid hypotension -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 -I advised him to get a blood pressure cuff and monitor it at home morning and evening for 2 weeks and record it. -goal LDL < 70 -goal HgbA1c < 7 Will refer patient to patient to occupational therapy and speech therapy in addition to the physical therapy is getting The patient and I discussed the clinical picture during today's appointment. Additional time was spent prior to the actual appointment reviewing records, lab values and imaging results and preparing documentation for today's visit. There was also time spent following the in person visit documenting, arranging for further diagnostic testing and follow-up appointments. The entire time spent in thisprocess was greater than 50 minutes. The majority of the actual [id number] visit was spent counseling the patient with respect to the current neurological picture. -RTC in 5 months for follow up Candido Lange MD documented in this encounter Plan of Treatment Upcoming Encounters Date Type Department Care Team (Late st Contact Info) Description 03/18/2025 2:30 PM EDT Treatment [address] [address] Rosana Chatterjee, AKOSUA 05/17/2025 1:00 PM EST Office Visit Adult Medicine [facility] [place] [address] [place], [place] [phone] Elly Lucas NP [address] [place], [place] 05/24/2025 2:00 PM EST Office Visit Pulmonology - [place] [address] [place] [address] Bennie Egan MD [address] [facility] [address] [place] [address] 02/15/2026 12:00 PM EDT Ancillary Procedure [facility] [address] [facility] [address] [place] [address] 02/23/2026 1:00 PM EDT Office Visit Vascular Surgery - [place] [address] [place] [address] aLrissa Santiago MD [address] [place] [phone] documented as of this encounter Visit Diagnoses Not on filedocumented in this encounter Care Teams Livestock Slaughterer Relationship Specialty Start Date End Date Humberto Alvarez MD [address] [place], [place] PCP - General Internal Medicine 04/24/21 documented as of this encounter
--- NOTE | ~2025-03-13 | MR_ITS ---
EXAMINATION: MR BRAIN WITHOUT CONTRAST CLINICAL INFORMATION: Rule out CVA. COMPARISON: CT head, and CTA head and neck 03/13/2025. TECHNIQUE: MRI of the brain was obtained using routine sequences without contrast. Examination performed on a 1.5 Suzanne Siemens high-field unit. FINDINGS: There is a tiny focus of diffusion restriction in the left posterior steen radiata (series 6, image 46). No additional foci of diffusion restriction are present. There is no intracranial hemorrhage, acute infarction, mass effect, or edema. Ventricles, sulci, and cisterns are mildly diffusely prominent, in keeping with age advanced cerebral and cerebellar volume loss. No shift of midline. Extensive hemosiderin staining in the right basal ganglia is present, in keeping with old hemorrhagic lacunar infarct. Punctate focus of hemosiderin staining is also present in the right lateral periatrial white matter. There are extensive scattered punctate and confluent foci of white matter T2 hyperintensity in the periventricular, subcortical, and hemispheric deep white matter. These foci are nonspecific but statistically most likely represent moderate to severe changes of small vessel ischemia. There are numerous old lacunar type infarcts in the bilateral gangliocapsular regions, as well as the right cerebellar hemisphere. Midline structures appear normally formed. There is thinning of the corpus callosum. The pituitary gland appears normal. Posterior fossa structures appear normal. Cerebellar tonsils are appropriately located. Major flow voids are preserved within the skull base. The globes and orbital contents demonstrate no abnormalities. Paranasal sinuses demonstrate moderate mucosal thickening present throughout the ethmoid and inferior frontal sinuses. Remainder of the paranasal sinuses are normally pneumatized. Nasal septum is midline without spur. The mastoids and tympanic cavities are normally aerated. Extracranial soft tissues demonstrate no abnormalities. No suspicious bone marrow changes are evident. Moderate degenerative changes in both TM joints. Atlantoaxial joint demonstrates moderate degenerative arthritis. MR/MR head/brain wo con IMPRESSION: 1. Tiny acute/subacute lacunar type infarct in the left posterior steen radiata. 2. No additional acute infarction or acute intracranial hemorrhage. 3. There are numerous old lacunar type infarcts in the bilateral gangliocapsular regions, and right cerebellar hemisphere. 4. There are moderate to severe changes of small vessel ischemia, with associated age advanced cerebral and cerebellar volume loss. 5. Ethmoid and inferior frontal paranasal sinus disease. Electronically signed by: Dane Cuba MD 03/15/2025 04:29 PM EDT
--- NOTE | ~2025-03-13 | CT_ITS ---
CLINICAL HISTORY: cva CT Head Without Contrast: Comparison: 08/09/2022 and 08/10/2022 MRI Findings: Cortical sulci are prominent. Ventricles are symmetric. There are periventricular areas of white matter degeneration due to microangiopathy. There is a 4 mm and 8.5 mm right basal ganglia and a 5 mm left basal ganglia remote lacunar infarcts. No shift in midline structures No intraparenchymal bleeding or abnormal extra axial blood fluid collections Normal pituitary size There is mucosal thickening of bilateral ethmoid air cells Unremarkable orbital structures No depressed fractures Impression: Unremarkable CT of the head, no signs of acute trauma This document has been electronically signed by: Ben Beyer MD on 03/13/2025 19:59:50
--- NOTE | ~2025-03-13 | CT_ITS ---
CLINICAL HISTORY: cva CTA HEAD, bolus contrast injection. 3D reconstructions and MPRs:: Comparison: 08/09/2022 Right Carotid Siphon: Right Anterior Cerebral Artery: A1 and A2 segments are unremarkable. There is peripheral cortical enhancement. Right Middle Cerebral Artery: M1 and M2 segments are unremarkable. There is peripheral cortical enhancement. Right Posterior Cerebral Artery: P1 and P2 segments are unremarkable. There is peripheral enhancement Left Carotid Siphon: Left Anterior Cerebral Artery: A2 segments are unremarkable. There is peripheral cortical enhancement. Left Middle Cerebral Artery: M1 and M2 segments are unremarkable. There is peripheral cortical enhancement. Left Posterior Cerebral Artery: P1 and P2 segments are unremarkable. There is peripheral cortical enhancement. Basilar Artery: Unremarkable Venous drainage: Normal Impression: Both left and right anterior cerebral arteries arise from right A1 No signs of aneurysm. No signs of arterial venous malformation. CTA Neck , Bolus contrast injection, 3D reconstructions and MPRs: Comparison: 08/09/2022 Findings: Soft tissues of the neck are unremarkable Superior aorta and branch vessels are unremarkable Right carotid: No stenosis . Right vertebral: No stenosis Left Carotid: No stenosis. Left Vertebral: No stenosis Impression: No stenosis No aneurysm or dissection This document has been electronically signed by: Ben Beyer MD on 03/13/2025 20:30:14
[2025-03-13 19:39] LABS: Prothrombin Time Whole Bld POC 30.1 sec (11.1-13.5); ~PT, ~INR - Anti Coag Clinic 2.5 (0.9-1.1)
--- NOTE | 2025-03-13 19:39 | ECG_ITS ---
Test Reason : STROKE Blood Pressure : */* mmHG Vent. Rate : 75 BPM Atrial Rate : 75 BPM P-R Int : 190 ms QRS Dur : 80 ms QT Int : 404 ms P-R-T Axes : -5 50 29 degrees QTcB Int : 451 ms Normal sinus rhythm Normal ECG When compared with ECG of 09-Aug-2022 20:11, No significant change was found Referred By: Adrianna Mckeon Electronically Signed By: STEPHANIE QUILES
--- NOTE | 2025-03-13 19:41 | ED.GENADULT ---
HPI - General Adult General Chief complaint: Stroke Stated complaint: Stroke Alert LKW 4pm R side weak unable to walk Time Seen by Provider: 03/13/25 19:37 Source: patient Mode of arrival: ambulatory Limitations: no limitations History of Present Illness ED Provider: Dr. Mckeon [facility] narrative: 65-year-old male presented hospital today for sudden onset of right-sided weakness. Patient stated he had difficulty walking with his right lower extremity. He does use a walker at baseline to ambulate. Patient stated he could not move it therefore he called EMS. Patient stated that he went to sleep around 13:00 in his normal state of health. However when he woke up around 16:00 he noticed the weakness. He called EMS for further evaluation. Patient is on Coumadin for antithrombin 3 deficiency. Related Data Home Medications ?Medication ?Instructions ?Recorded ?Confirmed omeprazole 20 mg capsule,delayed 1 cap PO DAILY 08/10/22 08/10/22 release warfarin 5 mg tablet 7.5 mg PO DAILY 08/10/22 08/10/22 Allergies Allergy/AdvReac Type Severity Reaction Status Date / Time lisinopril (From ZESTRIL) Allergy Unknown UNK Verified 03/13/25 20:20 Review of Systems Review of Systems: Pertinent review of systems as mentioned in HPI. All other system otherwise negative. [facility] Past Medical History [facility] Narrative: Medical history as mentioned in [facility] Medical History GERD (gastroesophageal reflux disease) Hypercoagulable state Social History Social History Household Members: Significant Other Housing: House Do you presently have visiting nurse or other home services: No Alcohol intake: never Patient Tobacco Use Status: Current everyday Tobacco user Tobacco use type: Cigarette Cigarette Packs Per Day: 1 Cigarettes Per Day: 20.0 Years Smoked: 50 Smoked in Last 30 Days: Yes Use of substances other than those prescribed or required for medical reasons: No Substance Use Type: Marijuana Advance Directives: No Advance Directives Information Provided: No Physical Exam ED Exam Exam: General: Pleasant, no distress, interacting appropriately Head: Normacephalic, atraumatic ENT: oral mucosa moist, neck supple, no tracheal deviation Cardiovascular: regular rate, regular rhythm, no murmurs, rubbing, gallops Respiratory: Diminished lung sounds bilaterally, no wheezing no rales no rhonchi Gastrointestinal: Soft, non distended, non tender, non guarding Extremities: No limb pain or swelling, no calf tenderness Neurological: Awake and alert, no facial droop noted, see NIH score for stroke evaluation. No obvious focal neurological deficit on exam. Skin: Warm and dry Psychiatric: Appropriate mood and thoughts Vital Signs: Vital Signs - 24 hr 03/13/25 20:17 Temperature 97.6 F Pulse Rate 81 Respiratory Rate 17 Pulse Oximetry 99 Oxygen Delivery Method Room Air BMI result Body Mass Index 27.2 NIH Stroke Scale Internal: Initial- Upon Arrival Time: 20:18 Level of Consciousness: Alert Level of Consciousness Questions: Answers both questions correctly Level of Consciousness Commands: Performs both tasks correctly Best Gaze: Normal Visual: No visual loss Facial Palsy: Normal Motor Arm (Right): No drift Motor Arm (Left): No drift Motor Leg (Right): No drift Motor Leg (Left): No drift Limb Ataxia: Absent Sensory: Normal Best Language: No aphasia Dysarthia: Normal Extinction and Inattention: No abnormality Score: 0 Medications Administered Discontinued Medications Generic Name Dose Route Start Last Admin Trade Name Freq PRN Reason Stop Dose Admin Sodium Chloride 1,000 mls @ 999 mls/hr 03/13/25 21:30 03/13/25 21:48 Ns IV 03/13/25 22:30 999 mls/hr .Q1H1M SAPNA Administration Iohexol 100 ml 03/13/25 19:47 03/13/25 19:50 Iohexol 350 Mg/Ml 100 Ml Infus..Btl IV 03/13/25 19:48 70 ml ONCE ONE Administration Medical Decision Making Medical Decision Making [facility] Narrative: 65-year-old male history of antithrombin 3 deficiency on Coumadin presented hospital today for evaluation of sudden onset of right-sided body weakness. Patient is still within a 24 hour window for his symptoms. We will obtain CT head CTA head and neck. Stroke activation will be initiated. Patient's INR is elevated. He is not TNK candidate due to last known normal. And his elevated INR. On reassessment the patient's NIH score is 0. CT head is negative for any sign of intracranial bleed. CTA head and neck is clear no sign of significant stenosis. INRs of at 2.4. Patient's CBC is unremarkable chemistries unremarkable, troponin is negative. Patient's NIH is 0. I did not appreciate any signs of objective right-sided weakness. At this time we will admit patient for TIA workup. Differential Diagnosis Differential Diagnoses: The differential diagnosis associated with the presentation includes CVA, TIA, right lower extremity weakness Lab Data MDM Lab Attestation statement: I reviewed the patient's lab results. 03/13/25 20:11 03/13/25 20:11 Labs: Lab Results 03/13/25 03/13/25 03/13/25 Range/Units 19:34 20:11 20:18 WBC 8.2 (4.8-10.8) X10*3/uL RBC 5.00 (4.60-5.80) X10*6/uL Hgb 14.9 (14.0-18.0) g/dl Hct 42.7 (42.0-52.0) % MCV 85.4 (80.0-98.0) fL MCH 29.8 (27.0-33.0) pg MCHC 34.9 (31.0-36.0) g/dl RDW 13.5 (11.0-16.0) % Plt Count 166 D (160-400) X10*3/uL MPV 9.5 (9.4-12.4) fL Immature Gran % (Auto) 0.1 (0.0-0.4) % Neut % (Auto) 54.3 (45-73) % Lymph % (Auto) 33.9 (20-40) % Mercer % (Auto) 6.7 (2-11) % Eos % (Auto) 3.9 (0-4) % Baso % (Auto) 1.1 (0-2) % Lymph # (Auto) 2.8 (1.2-4.9) X10*3/uL Mercer # (Auto) 0.6 (0.1-1.2) X10*3/uL Eos # (Auto) 0.3 (0.0-0.4) X10*3/uL Baso # (Auto) 0.1 (0.0-0.2) X10*3/uL Abs Immat Gran (auto) 0.01 (0.00-0.03) X10*3/uL Absolute Neuts (auto) 4.5 (2.0-8.3) x10*3/uL Absolute Nucleated RBC 0.000 (0.0-0.012) X10*3/uL Nucleated RBC % (auto) 0.0 (0.0-0.2) /100WBC PT 27.6 H (10.9-12.4) SEC Whole Blood PT 30.1 H (11.1-13.5) sec INR 2.4 H (0.9-1.1) Whole Blood INR 2.5 H (0.9-1.1) APTT 41.6 H (26.7-34.1) SEC VBG pH 7.47 H (7.32-7.43) VBG pCO2 31 mmHg VBG pO2 74 mmHg VBG HCO3 23 (22-26) mmol/L VBG O2 Saturation 95.0 % VBG Base Excess 1.1 mmol/L Sodium 140 (135-145) mmol/L Potassium 3.5 (3.3-5.1) mmol/L Chloride 107 (96-108) mmol/L Carbon Dioxide 23 (22-29) mmol/L Anion Gap 14 (12-20) BUN 14 (9-16) mg/dL Creatinine 1.01 (0.5-1.4) mg/dL Estim Creat Clear Calc 87.0 Estimated GFR > 60 Random Glucose 91 (60-115) mg/dL Calcium 9.0 (8.4-10.2) mg/dL Troponin I High Sens < 2.7 (<3.5-35.0) ng/L Triglycerides 114 (<150) mg/dL Cholesterol 130 (<200) mg/dL LDL Cholesterol, Calc 83 (<100) mg/dL HDL Cholesterol 25 L (>40) mg/dL Urine Opiates Screen (Not Detect) Ur Buprenorphine Scrn (Not Detect) ng/mL Ur Oxycodone Screen (Not Detect) ng/mL Urine Methadone Screen (Not Detect) ng/mL Urine Fentanyl Screen (Not Detect) Ur Barbiturates Screen (Not Detect) Ur Phencyclidine Scrn (Not Detect) Ur Amphetamines Screen (Not Detect) U Benzodiazepines Scrn (Not Detect) Urine Cocaine Screen (Not Detect) U Marijuana (THC) Screen (Not Detect) Ethyl Alcohol < 10 mg/dL 03/13/25 Range/Units 20:57 WBC (4.8-10.8) X10*3/uL RBC (4.60-5.80) X10*6/uL Hgb (14.0-18.0) g/dl Hct (42.0-52.0) % MCV (80.0-98.0) fL MCH (27.0-33.0) pg MCHC (31.0-36.0) g/dl RDW (11.0-16.0) % Plt Count (160-400) X10*3/uL MPV (9.4-12.4) fL Immature Gran % (Auto) (0.0-0.4) % Neut % (Auto) (45-73) % Lymph % (Auto) (20-40) % Mercer % (Auto) (2-11) % Eos % (Auto) (0-4) % Baso % (Auto) (0-2) % Lymph # (Auto) (1.2-4.9) X10*3/uL Mercer # (Auto) (0.1-1.2) X10*3/uL Eos # (Auto) (0.0-0.4) X10*3/uL Baso # (Auto) (0.0-0.2) X10*3/uL Abs Immat Gran (auto) (0.00-0.03) X10*3/uL Absolute Neuts (auto) (2.0-8.3) x10*3/uL Absolute Nucleated RBC (0.0-0.012) X10*3/uL Nucleated RBC % (auto) (0.0-0.2) /100WBC PT (10.9-12.4) SEC Whole Blood PT (11.1-13.5) sec INR (0.9-1.1) Whole Blood INR (0.9-1.1) APTT (26.7-34.1) SEC VBG pH (7.32-7.43) VBG pCO2 mmHg VBG pO2 mmHg VBG HCO3 (22-26) mmol/L VBG O2 Saturation % VBG Base Excess mmol/L Sodium (135-145) mmol/L Potassium (3.3-5.1) mmol/L Chloride (96-108) mmol/L Carbon Dioxide (22-29) mmol/L Anion Gap (12-20) BUN (9-16) mg/dL Creatinine (0.5-1.4) mg/dL Estim Creat Clear Calc Estimated GFR Random Glucose (60-115) mg/dL Calcium (8.4-10.2) mg/dL Troponin I High Sens (<3.5-35.0) ng/L Triglycerides (<150) mg/dL Cholesterol (<200) mg/dL LDL Cholesterol, Calc (<100) mg/dL HDL Cholesterol (>40) mg/dL Urine Opiates Screen Not Detected (Not Detect) Ur Buprenorphine Scrn Not Detected (Not Detect) ng/mL Ur Oxycodone Screen Positive H (Not Detect) ng/mL Urine Methadone Screen Not Detected (Not Detect) ng/mL Urine Fentanyl Screen Not Detected (Not Detect) Ur Barbiturates Screen Not Detected (Not Detect) Ur Phencyclidine Scrn Not Detected (Not Detect) Ur Amphetamines Screen Not Detected (Not Detect) U Benzodiazepines Scrn Not Detected (Not Detect) Urine Cocaine Screen Not Detected (Not Detect) U Marijuana (THC) Screen POSITIVE H (Not Detect) Ethyl Alcohol mg/dL Independent Interpretation I performed an independent interpretation of an: CT Scan Radiology Impression Discussion of test interpretation with radiology: I have reviewed the radiologist's reading. Critical Care Time Critical Care Time Critical Care Time: Yes Total Critical Care Time: 40 Attestation: Time is exclusive of separately billable procedures. Time includes: direct patient care, patient reassessment, coordination of patient care, interpretation of data (laboratory data, pulse oximetry, arterial blood gases and chest xrays), review of patient's medical records, medical consultation and documentation of patient care. Procedures excluded from critical care time: central intravenous line placement and electrocardiography. Discharge Plan Discharge Clinical Impression: Right sided weakness Patient Disposition: Admitted As Inpatient Print Language: Chinese
[2025-03-13] MEDS: iohexoL 350 MG/ML 100 ML INFUS..BTL IV (19:50)
--- NOTE | 2025-03-13 20:02 | PC.NURSE ---
unremarkable ct of the head with no signs of acute trauma per real radiology phone call
[2025-03-13 20:17] VITALS: BP 172/90; PULSE 81; PULSE 92; RESP 17; TEMP 36.4; O2SAT 99; BMI 27.2
[2025-03-13 20:18] LABS: MANUAL DIFF FLAG NO
[2025-03-13 20:19] LABS: Hematocrit 42.7 % (42.0-52.0); Hemoglobin 14.9 g/dl (14.0-18.0); Imm Gran Abs Auto 0.01 X10*3/uL (0.00-0.03); Imm Gran Pct Auto 0.1 % (0.0-0.4); Lymphocytes Absolute Auto 2.8 X10*3/uL (1.2-4.9); Mean Corpuscular HGB Conc 34.9 g/dl (31.0-36.0); Mean Corpuscular Hemoglobin 29.8 pg (27.0-33.0); Mean Corpuscular Volume 85.4 fL (80.0-98.0); NRBC Abs Auto 0.000 X10*3/uL (0.0-0.012); NRBC Pct Auto 0.0 /100WBC (0.0-0.2); Platelet Count 166 X10*3/uL (160-400); Red Blood Count 5.00 X10*6/uL (4.60-5.80); White Blood Count 8.2 X10*3/uL (4.8-10.8)
[2025-03-13 20:20] LABS: Venous Blood Gas Refer to POC result
[2025-03-13 20:22] LABS: VBG HCO3 23 mmol/L (22-26); VBG O2 % Saturation 95.0 %
[2025-03-13 20:25] LABS: INTERNATIONAL NORM RATIO 2.4 (0.9-1.1); Prothrombin Time 27.6 SEC (10.9-12.4)
[2025-03-13 20:28] LABS: Partial Thromboplastin Time 41.6 SEC (26.7-34.1); Stroke Lab Use COMPLETE
--- OUTSIDE RECORDS SUMMARY | 2025-03-13 20:35 | XMS_ITS | Encounter Summary ---
Author Organization [facility] Address [address] [place] [address] Care Team Providers Care Manager Applied Name Role Phone Humberto Alvarez MD Primary Care Provider [phone] Encounter Details Date Type Department Care Team (Late st Contact Info) Description 03/05/2025 Anticoagulation - Warfarin Visit [facility] [address] [place] [address] Humberto Alvarez MD [address] [place] [address] Antithrombin III deficiency (CMS/HCC V24) (Primary Dx) Social History Tobacco Use Types Packs/Day Years [...] on file documented as of this encounter Progress Notes * Emily Lopez LPN - 03/05/2025 3:05 PM EDT Anticoagulation Summary As of 03/05/2025 INR goal: 2.5-3.5 TTR: 69.8% (10.4 mo) INR used for dosin.5 (03/05/2025) Warfarin maintenance plan: 5 mg (5 mg x 1) every Mon, Wed, Fri; 7.5 mg (5 mg x 1.5) all other days Weekly warfarin total: 45 mg Plan last modified: Emily Lopez LPN (03/05/2025) Next INR check: 03/12/2025 Priority: Critical Target end date: -- Indications Antithrombin III deficiency ([facility] V24) [D68.59] Anticoagulation Episode Summary INR check location: Anticoagulation Clinic Preferred lab: -- Send INR reminders to: [facility] Comments: -- Anticoagulation Care Providers Provider Role Specialty Phone number Humberto Alvarez MD Internal Medicine [phone] Patient presents for follow-up of ongoing Warfarin therapy. Patient had his INR drawn via Home Draw. Patient denies any significant issues with adherence to the medication regimen. Patient denies experiencing any symptoms of bleeding, such as unusual bruising, nosebleeds, hematuria, or melena. Patient reports feeling generally well and denies any new complaints. Plan of care: New warfarin dose: No change Warfarin education of dietary considerations, medication/supplement interactions, and the need to continue avoiding activities that increase the risk of injury or bleeding reinforced. Patient verbalized understanding of ongoing INR monitoring and dosage change. Patient is aware of the signs of potential complications and knows to contact the clinic if they occur. Anticoagulation Flowsheet updated with new plan of care. Plan discussed with provider, no additional changes at this time. Anticoagulation Clinic Protocol Dose Type Dose Range INR Dose Adjustment # Doses Omitted Recheck Date Mini Dose 1.4-2.0 Very Low <1.2 Consult Provider 0 1 week Low 1.2-1.4 If singular event - no change If 2 in a row or 2 of the last 3 - Increase weekly dose by 10% 0 1 week In Range 1.4-2.0 No adjustment 0 1-4 weeks* High 2.0-3.0 If singular event - no change If 2 in a row or 2 of the last 3 - Decrease weekly dose by 10% 0 1 week Very High >3.0 Consult Provider 2 2 days If OK after 2 days - Decrease weekly dose by 10% 0 1 week Usual Dose 2.0-3.0 Very Low <1.5 Consult Provider 0 1 week Low 1.5-2.0 If singular event - No change If 2 in a row or 2 of the last 3 - Increase weekly dose by 10% 0 1 week In Range 2.0-3.0 No Adjustment 0 1-4 weeks* High >3.0-3.5 If singular event - No change If 2 in a row or 2 of the last 3 - Decrease weekly dose by 10% 0 1 week Very High >3.5-4.0 Consult Provider 1 2 days >4.0 Consult Provider 2 2 days If OK after 2 days - Decrease weekly dose by 10% 0 1 week Mechanical Valve 2.5-3.5 Very Low <1.5 Consult Provider 0 1 week Low 1.5-2.5 If singular event - No change If 2 in a row or 2 of the last 3 - Increase weekly dose by 10% 0 1 week In Range 2.5-3.5 No Adjustment 0 1-4 weeks* High >3.5-4.0 If singular event - No change If 2 in a row or 2 of the last 3 - Decrease weekly dose by 10% 0 1 week Very High >4.0-4.9 Consult Provider 1 2 days >5.0 Consult Provider 2 2 days If OK after 2 days - Decrease weekly dose by 10% 0 1 week * In range 1 week = recheck in 1 week In range 2 weeks = recheck in 2 weeks In range 3 weeks = recheck in 3 weeks In range 4 weeks = recheck in 4 weeks Cosigned by Ayo Cristobal MD at 03/05/2025 3:12 PM EDT documented in this encounter Plan of Treatment Upcoming Encounters Date Type Department Care Team (Late st Contact Info) Description 03/18/2025 2:30 PM EDT Treatment [address] [phone] Rosana Chatterjee, PT 05/17/2025 1:00 PM EST Office Visit Adult [address] [phone] Elly Lucas NP [address] [place] [address] 05/24/2025 2:00 PM EST Office Visit Pulmonology - [place] [address] [place] [phone] Bennie Egan MD [address] [facility] [address] [place] [address] 02/15/2026 12:00 PM EDT Ancillary Procedure [facility] [address] [facility] [address] [place] [phone] 02/23/2026 1:00 PM EDT Office Visit Vascular Surgery - [place] [address] [place] [phone] Larissa Santiago MD [address] [place] [phone] documented as of this encounter Procedures Procedure Name Priority Date/Time Associated Diagnosis Comments PROTHROMBIN TIME WITH INR Routine 03/05/2025 documented in this encounter Results * Prothrombin time with INR (03/05/2025) INR 2.5 Prothrombin Time POC Blood Venous blood specimen / Unknown 03/05/2025 Ayo Cristobal MD LAB BLOOD ORDERABLES Final Result documented in this encounter Visit Diagnoses Diagnosis Antithrombin III deficiency (CMS/HCC V24)- Primary Primary hypercoagulable state documented in this encounter Care Teams Manager Applied Relationship Specialty Start Date End Date Humberto Alvarez MD [address] [place], [place] PCP - General Internal Medicine 04/24/21 documented as of this encounter
--- OUTSIDE RECORDS SUMMARY | 2025-03-13 20:35 | XMS_ITS | Encounter Summary ---
Author Organization [facility] Address [address] [place] [address] Care Team Providers Care Commercial Reporter Name Role Phone Humberto Alvarez MD Primary Care Provider [phone] Encounter Details Date Type Department Care Team (Late Contact Info) Description 03/13/2025 Results Follow-Up Adult [facility] [address] [place], [place] [phone] Elly Lucas, PIT STEWARD [address] [place], [place] Social History Tobacco Use Types Packs/Day Years [...] on file documented as of this encounter Plan of Treatment Upcoming Encounters Date Type Department Care Team (Late Contact Info) Description 03/18/2025 2:30 PM EDT Treatment [address] [phone] Rosana Chatterjee, PT 05/17/2025 1:00 PM EST Office Visit [facility] [place] [address] [place], [place] [phone] Elly Lucas NP [address] [place], [place] 05/24/2025 2:00 PM EST Office Visit Pulmonology - [place] [address] [facility] [address] [place] [address] Bennie Egan MD 175 [facility] [address] [place] [address] 02/15/2026 12:00 PM EDT Ancillary Procedure [facility] - [facility] [address] [facility] [address] [place] [phone] 02/23/2026 1:00 PM EDT Office Visit Vascular Surgery - [place] [address] [facility] [address] [place] [address] Larissa Santiago MD [address] [place] [phone] documented as of this encounter Visit Diagnoses Not on filedocumented in this encounter Care Teams Commercial Reporter Relationship Specialty Start Date End Date Humberto Alvarez MD [address] [place], [place] PCP - General Internal Medicine 04/24/21 documented as of this encounter
--- OUTSIDE RECORDS SUMMARY | 2025-03-13 20:35 | XMS_ITS | Clinical Summary ---
Author Organization [facility] Address [address] [place] [address] Phone Care Team Providers Care Facilities Planner Name Role Phone Humberto Alvarez MD Primary Care Provider [phone] Allergies Active Allergy Reactions Criticality Noted Date Comments Lisinopril 04/30/2005 heart palpatations, sob Medications albuterol HFA (PROAIR HFA ; PROVENTIL HFA ; VENTOLIN HFA) 90 mcg/actuation inhalerIndicatio ns:Chronic obstructive pulmonary disease, unspecified COPD type (CMS/HCC V24, CMS/HCC V28) Inhale 2 puffs by mouth every 6 (six) hours if needed for wheezing. 6.7 g 11 5 06/17/19 26 Active Additional Information Patient not taking.Reported on 11/12/2024 sertraline (ZOLOFT) 25 mg tablet Take 1 tablet (25 mg total) by mouth 1 (one) time each day. 30 each 5 5 04/24/20 25 Active amLODIPine (NORVASC) 2.5 mg tablet TAKE 1 TABLET(2.5 MG) BY MOUTH 1 TIME EACH DAY 90 tablet 1 5 Active omeprazole (PriLOSEC) [address] capsule Take 1 capsule (20 mg total) by mouth 1 (one) time each day. Do not crush or chew. 90 capsule 1 5 Active sertraline (ZOLOFT) 100 mg tablet Take 1 tablet (100 mg total) by mouth 1 (one) time each day. In addition to 25 mg once daily for a total of 125 mg daily 90 tablet 1 5 Active atorvastatin (LIPITOR) 80 mg tablet TAKE 1 TABLET BY MOUTH DAILY 90 tablet 5 Active atorvastatin (LIPITOR) 80 mg tablet Take 1 tablet (80 mg total) by mouth 1 (one) time each day. 90 tablet 1 5 Active Additional Information Patient not taking.Reported on 02/17/2025 warfarin (COUMADIN) 5 mg tablet TAKE 1 TO 1& 1/2 TABLET BY MOUTH DAILY DIRECTED BY THE CLINIC AT SAME TIME DAILY. MAY CAUSE HEAVY BLEEDING. DO NOT CHANGE DIET. 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 CT imaging worrisome for 5 mm enhancing soft tissue along the right aspect of the right glossal epiglottic fold and lingual surface of the right epiglottis. Patient has upcoming ENT follow-up. Vertebral artery stenosis 08/22/2022 Elevated PSA 01/22/2022 Hyperlipidemia 04/24/2021 Gastroesophageal reflux disease 04/24/2021 Impotence of organic origin 12/01/2019 Appendicolith 12/17/2018 Overview (03/17/2024): Incental finding on CT 12/26. 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 Overview (03/17/2024): Has never had clots but father has A lot of clots Essential hypertension, benign 03/26/2005 Pure hypercholesterolemia 03/14/2001 Overview (03/17/2024): Has declined statins in the past but worth reviewing again in the future Encounters Date Type Department Care Team Description 03/13/2025 Results Follow-Up Adult Medicine [address] [phone] Elly Lucas NP 03/11/2025 Telephone Adult Medicine [address] [phone] Humberto Alvarez MD 03/05/2025 Anticoagulation - [facility]farin [facility] [address] [phone] Humberto Alvarez MD Antithrombin III deficiency ([facility]/HCC V24) (Primary Dx) 02/26/2025 Anticoagulation - Warfarin Visit [facility] [address] [phone] Emily Lopez LPN Antithrombin III deficiency ([facility]/HCC V24) (Primary Dx) 02/23/2025 Telephone Adult Medicine [address] [phone] Elly Lucas NP 02/17/2025 10:30 AM EDT Office Visit Vascular Surgery - [place] [address] [place] [address] Larissa Santiago MD Carotid stenosis, right (Primary Dx); Asymptomatic bilateral carotid artery stenosis 02/16/2025 3:40 PM EDT - 02/16/2025 11:59 PM EDT Hospital Encounter Radiology Department - [address] [phone] Balance problem; Abnormality of gait; History of cardioembolic cerebrovascular accident (CVA); Antithrombin 3 deficiency (CMS/HCC V24); Frequent falls; Abnormal CT scan, head Discharge Disposition: Home or Self Care 02/11/2025 Anticoagulation - Warfarin Visit [facility] [address] [phone] Emily Lopez LPN Antithrombin III deficiency (CMS/HCC V24) (Primary Dx) 01/31/2025 Telephone Adult Medicine [address] [phone] Elly Lucas NP 01/27/2025 1:30 PM EDT - 01/27/2025 11:59 PM EDT Hospital Encounter CT Scan [address] [phone] Abnormality of gait; Balance problem; Frequent falls; History of cardioembolic cerebrovascular accident (CVA); Antithrombin 3 deficiency (CMS/HCC V24) Discharge Disposition: Home or Self Care 01/27/2025 1:00 PM EDT Office Visit [address] [phone] Elly Lucas NP Balance problem (Primary Dx); Abnormality of gait; History of cardioembolic cerebrovascular accident (CVA); Antithrombin 3 deficiency (CMS/HCC V24); Frequent falls; Urinary incontinence, unspecified type; Depression, unspecified depression type; Chronic obstructive pulmonary disease, unspecified COPD type (CMS/HCC V24, CMS/HCC V28); Encounter for screening for malignant neoplasm of prostate; Encounter for screening for cardiovascular disorders; Need for tetanus, diphtheria, and acellular pertussis (Tdap) vaccine 01/21/2025 Anticoagulation - Warfarin Visit [facility] [address] [phone] Emily Lopez LPN Antithrombin III deficiency (CMS/HCC V24) (Primary Dx) 01/18/2025 1:30 PM EDT Treatment [facility] [address] [phone] Nitish Gunter, CMM PROGRAMMER Cerebrovascular accident (CVA), unspecified mechanism (CMS/HCC V24, CMS/HCC V28) (Primary Dx); Abnormality of gait 12/23/2024 1:30 PM EDT Treatment [facility] [address] [phone] Nitish Gunter, CMM PROGRAMMER Cerebrovascular accident (CVA), unspecified mechanism (CMS/HCC V24, CMS/HCC V28) (Primary Dx); Abnormality of gait 12/21/2024 2:30 PM EDT Treatment [facility] [address] [phone] Nitish Gunter, CMM PROGRAMMER Cerebrovascular accident (CVA), unspecified mechanism (CMS/HCC V24, CMS/HCC V28) (Primary Dx) 12/18/2024 Anticoagulation - Warfarin Visit [facility] [address] [phone] Emily Lopez LPN Antithrombin III deficiency (CMS/HCC V24) (Primary Dx) from Last 3 Months Immunizations Immunization Administration Dates Next Due Td Tetanus diptheria (Tdvax) 7yo and older 12/03 Tdap Tetanus diptheria acell ular pertussis (Boostrix; Adacel) 7yo and older 01/27/2025 Surgical History Surgery Date Site/Laterality Comments HERNIA REPAIR PROCEDURE: HISTORICAL HERNIA REPAIR/ING; COMMENT: both sides about 5 years difference Medical History Medical History Date Comments Essential hypertension, benign 03/26/05 D X:Essential hypertension, benign Pure hypercholesterolemia 03/14/01 DX:Pur e hypercholesterolemia Polycythemia 11/21/2018 DX:Polycythemia; COMMENT: chronic Antithrombin 3 deficiency (C MS/HCC V24) 04/11/2005 DX:Antithrombin 3 deficiency (HCC); COMMENT: Has never had clots but father has A lot of clots Anxiety 11/28/2010 DX:Anxiety Choroidal nevus, left 05/19/2018 DX:Choroid al nevus, left Kidney stones 06/07/2010 DX:Kidney stones Nuclear sclerosis of both eyes 05/07/2016 D X:Nuclear sclerosis of both eyes Pneumothorax 11/28/2010 DX:Pneumothorax; COMMENT: 3 spontaneous pneoumothorax in the past Tobacco use disorder 05/04/2008 DX:Tobacco use disorder Gastroesophageal reflux disease 04/24/2021 DX:Gastroesophageal reflux disease Family History Medical History Relation Name Comments No Known Problems Aunt Other: Other Father Antithrombin 3 Deficiency No Known Problems Maternal Grandfather No Known Problems Maternal Grandmother Hypertension Mother at 81, Syn cope resulted in hospitalization, pt was in renal failure No Known Problems Other No Known Problems Paternal Grandfather No Known Problems Paternal Grandmother No Known Problems Sister No Known Problems Uncle Blindness Neg Hx Cataracts Neg Hx Glaucoma Neg Hx Macular degeneration Neg Hx Strabismus Neg Hx Relation Name Status Comments Aunt Father (Age 88) blood clot s and antithronbin 3 deff. Maternal Grandfather Maternal Grandmother Mother Other Paternal Grandfather Paternal Grandmother Sister Alive ??? Uncle Social History Tobacco Use Types Packs/Day Years Used Date Smoking Tobacco: Every Day Cigarettes Smokeless Tobacco: Never Tobacco Cessation:Ready to Q uit: Not Asked; Counseling Given: Not Answered Comments:Pt smoking 1 pk of cigs daily Alcohol Use Standard Drinks/Week Comments No 0 (1 standard drink = 0.6 oz pur e alcohol) Sex and Gender Information Value Date Recorded Sex Assigned at Male 08/13/2024 2:45 PM EST Legal Sex Male 10:24 AM EST Gender Identity Male 08/13/2024 2:45 PM EST Sexual Orientation Not on file Obstetrics History Last Filed Vital Signs Vital Sign Reading Time Taken Comments Blood Pressure 100/70 02/17/2025 10:44 AM EDT Pulse 112 02/17/2025 10:44 AM EDT Temperature 36.3 C (97.3 F) 01/27/2025 12:46 PM EDT Respiratory Rate 16 02/17/2025 10:44 AM EDT Oxygen Saturation 96% 01/27/2025 12:46 PM EDT Inhaled Oxygen Concentration - - Weight 95.3 kg (210 lb) 02/17/2025 10:44 AM EDT Height 188 cm (6' 2 ) 02/17/2025 10:44 AM EDT Body Mass Index 26.96 02/17/2025 10:44 AM EDT Plan of Treatment Upcoming Encounters Date Type Department Care Team (Late st Contact Info) Description 03/18/2025 2:30 PM EDT Treatment [facility] [place] [address] [facility] [address] [place] [phone] Rosana Chatterjee, PT 05/17/2025 1:00 PM EST Office Visit Adult Medicine [facility] [address], [place] [phone] Elly Lucas NP [address] 05/24/2025 2:00 PM EST Office Visit Pulmonology - [place] 175 [facility] [address] [place] [phone] Bennie Egan MD 175 [facility] [address] [place] [address] 02/15/2026 12:00 PM EDT Ancillary Procedure [facility] [address] [facility] [address] [place] [phone] 02/23/2026 1:00 PM EDT Office Visit Vascular Surgery - [place] [address] [facility] [address] [place] [phone] Larissa Santiago MD [address] [place] [phone] Health Maintenance Due Date Last Done Comments Pneumococcal Vaccine: 50+ Years (1 of 2 - PCV) 1981 Zoster Vaccines (1 of 2) 02/22/2012 RSV Immunization Adult Patients (1 - Risk 60-74 years 1-dose series) 2022 Social Influencers of Health Screening 05/19/2022 Colorectal Cancer Screening: Stool Based Tests (FOBT/FIT) 03/25/2024 03/25/2023 Depression Screening 06/10/2024 02/20/2024 Influenza Vaccine (#1) 2025 Lung Cancer Screening (Low Dose CT) 09/14/2025 09/14/2024, 08/12/2023, 08/09/2022, Additional history exists Hypertension/CHF/CAD Annual BMP Blood Test 01/27/2026 01/27/2025, 10/26/2024, 08/08/2023 Cholesterol Screening (Lipid Panel) 01/27/2030 01/27/2025, 01/21/2023 DTaP,Tdap,and Td Vaccines (3 - Td or Tdap) 01/27/2035 01/27/2025, 12/03/2005 Hepatitis C Screening Completed 03/23/2019 COVID-19 Vaccine Discontinued 10/02/2020, 09/09/2020 HIB Vaccines Aged Out No longer eligi ble based on patient's age to complete this topic HIV Screening Discontinued HPV Vaccines Aged Out No longer eligi ble based on patient's age to complete this topic Hepatitis A Vaccines Aged Out No long er eligible based on patient's age to complete this topic Hepatitis B Vaccines Aged Out No long er eligible based on patient's age to complete this topic IPV Vaccines Aged Out No longer eligi ble based on patient's age to complete this topic MMR Vaccines Aged Out No longer eligi ble based on patient's age to complete this topic Meningococcal ACWY Vaccine Aged Out N o longer eligible based on patient's age to complete this topic Meningococcal B Vaccine Aged Out No l onger eligible based on patient's age to complete this topic RSV Immunization Patients Under 20 months Aged Out No longer eligible based on patient's age to complete this topic Varicella Vaccines Aged Out No longer eligible based on patient's age to complete this topic Procedures Procedure Name Priority Date/Time Associated Diagnosis Comments PROTHROMBIN TIME WITH INR 03/05/2025 PROTHROMBIN TIME WITH INR Routine 03/05/2025 PROTHROMBIN TIME WITH INR 02/26/2025 PROTHROMBIN TIME WITH INR Routine 02/26/2025 MR BRAIN WO CONTRAST Routine 02/16/2025 4:53 PM EDT Balance problem Abnormality of gait History of cardioembolic cerebrovascular accident (CVA) Antithrombin 3 deficiency (CMS/HCC V24) Frequent falls Abnormal CT scan, head PROTHROMBIN TIME WITH INR 02/11/2025 PROTHROMBIN TIME WITH INR Routine 02/10/2025 CANTRELL URINE CULTURE TUBE Routine 01/27/2025 3:16 PM EDT Abnormality of gait Balance problem Frequent falls History of cardioembolic cerebrovascular accident (CVA) Antithrombin 3 deficiency (CMS/HCC V24) Urinary incontinence, unspecified type Encounter for screening for malignant neoplasm of prostate Encounter for screening for cardiovascular disorders Need for tetanus, diphtheria, and acellular pertussis (Tdap) vaccine URINALYSIS WITH REFLEX MICROSCOPIC AND CULTURE Routine 01/27/2025 3:16 PM EDT Abnormality of gait Balance problem Frequent falls History of cardioembolic cerebrovascular accident (CVA) Antithrombin 3 deficiency (CMS/HCC V24) Urinary incontinence, unspecified type Encounter for screening for malignant neoplasm of prostate Encounter for screening for cardiovascular disorders Need for tetanus, diphtheria, and acellular pertussis (Tdap) vaccine URINALYSIS WITH REFLEX MICROSCOPIC AND CULTURE Routine 01/27/2025 3:16 PM EDT Abnormality of gait Balance problem Frequent falls History of cardioembolic cerebrovascular accident (CVA) Antithrombin 3 deficiency (CMS/HCC V24) Urinary incontinence, unspecified type Encounter for screening for malignant neoplasm of prostate Encounter for screening for cardiovascular disorders Need for tetanus, diphtheria, and acellular pertussis (Tdap) vaccine COMPREHENSIVE METABOLIC PANEL Routine 01/27/2025 3:16 PM EDT Abnormality of gait Balance problem Frequent falls History of cardioembolic cerebrovascular accident (CVA) Antithrombin 3 deficiency (CMS/HCC V24) Urinary incontinence, unspecified type Encounter for screening for malignant neoplasm of prostate Encounter for screening for cardiovascular disorders Need for tetanus, diphtheria, and acellular pertussis (Tdap) vaccine PROSTATE SPECIFIC ANTIGEN SCREEN Routine 01/27/2025 3:16 PM EDT Encounter for screening for malignant neoplasm of prostate LIPID PANEL WITH REFLEX TO DIRECT LDL Routine 01/27/2025 3:16 PM EDT Encounter for screening for cardiovascular disorders CT HEAD WO CONTRAST STAT 01/27/2025 3 :08 PM EDT Abnormality of gait Balance problem Frequent falls History of cardioembolic cerebrovascular accident (CVA) Antithrombin 3 deficiency (CMS/HCC V24) PROTHROMBIN TIME WITH INR 01/21/2025 PROTHROMBIN TIME WITH INR Routine 01/20/2025 PROTHROMBIN TIME WITH INR 12/17/2024 PROTHROMBIN TIME WITH INR Routine 12/16/2024 CT LUNG SCREENING Routine 09/14/2024 3:1 3 PM EDT Encounter for screening for malignant neoplasm of respiratory organs Nicotine dependence, cigarettes, uncomplicated HM DEPRESSION SCREENING Routine 02/20/2024 HM STOOL BASED TEST Routine 03/25/2023 HEPATITIS C SCREENING Routine 03/23/2019 from Last 3 Months or Most Recently Relevant to Health Maintenance Results * Prothrombin time with INR (03/05/2025) Only the most recent of10 resultswithin the time period is included. us Provider [facility] LAB BLOOD ORDERABLES Fin al Result * MR Brain wo Contrast (02/16/2025 4:53 PM EDT) Anatomical Region Laterality Modality Head and Neck Magnetic Resonan ce 02/16/2025 5:39 PM EDT Impressions 02/17/2025 10:18 AM EDT Progressive fairly extensive white matter signal abnormalities, probably related to chronic small vessel ischemic disease. No evidence of recent ischemia. Progressive atrophy. Multi sinus disease. POS - [id number] -------- FINAL REPORT -------- Dictated By: Imelda Fatima Dictated Date: 02/16/2025 17:39 ET Assigned Physician: Imelda Fatima Reviewed and Electronically Signed By: Imelda Fatima Signed Date: 02/17/2025 10:18 ET Workstation ID: [id number] Transcribed By: Self Edit Transcribed Date: 02/16/2025 18:14 ET Narrative 02/17/2025 10:18 AM EDT EXAM: Brain MRI HISTORY: Balance problem, frequent falls, abnormal gait, and history of stroke. COMPARISON: 12/24/2022 CORRELATION: Head CT 01/27/2025 TECHNIQUE: Exam performed on a 1.5 Suzanne high-field MRI scanner. Multiplanar imaging performed without contrast. FINDINGS: Exam mildly limited by varying degrees of motion artifact. No restricted diffusion to indicate a recent infarct. No evidence of new intracranial hemorrhage. Stable irregular and bandlike areas of susceptibility effect in the right periventricular region extending inferiorly into the right basal ganglia from hemosiderin deposition. Progressive scattered and confluent periventricular and deep white matter T2/FLAIR hyperintense signal abnormalities, now fairly extensive. No evidence of a mass, mass effect, or midline shift. Progressive ventriculomegaly which does not seem out of proportion to the degree of sulcal prominence indicating atrophy rather than hydrocephalus. No cerebellar ectopia. Pituitary gland is not enlarged. Normal vascular flow-voids appear present in the major intracranial arteries at the skull base. Moderate mucosal thickening in the ethmoid sinuses, inferior frontal sinuses, and right sphenoid sinus. 1 cm polypoid lesion in the inferomedial left maxillary sinus which has T1/T2 hyperintense signal could represent a retention cyst or polyp. No significant fluid signal within mastoid air cells. Procedure Note Imelda Fatima MD - 02/17/2025 EXAM: Brain MRI HISTORY: Balance problem, frequent falls, abnormal gait, and history ofstroke. COMPARISON: 12/24/2022 CORRELATION: Head CT 01/27/2025 TECHNIQUE: Exam performed on a 1.5 Suzanne high-field MRI scanner.Multiplanar imaging performed without contrast. FINDINGS: Exam mildly limited by varying degrees of motion artifact. No restricted diffusion to indicate a recent infarct. No evidence of newintracranial hemorrhage. Stable irregular and bandlike areas ofsusceptibility effect in the right periventricular region extendinginferiorly into the right basal ganglia from hemosiderin deposition.Progressive scattered and confluent periventricular and deep white matterT2/FLAIR hyperintense signal abnormalities, now fairly extensive. No evidence of a mass, mass effect, or midline shift. Progressiveventriculomegaly which does not seem out of proportion to the degree ofsulcal prominence indicating atrophy rather than hydrocephalus. Nocerebellar ectopia. Pituitary gland is not enlarged. Normal vascularflow-voids appear present in the major intracranial arteries at the skullbase. Moderate mucosal thickening in the ethmoid sinuses, inferior frontalsinuses, and right sphenoid sinus. 1 cm polypoid lesion in theinferomedial left maxillary sinus which has T1/T2 hyperintense signalcould represent a retention cyst or polyp. No significant fluid signalwithin mastoid air cells. IMPRESSION: Progressive fairly extensive white matter signal abnormalities, probablyrelated to chronic small vessel ischemic disease. No evidence of recentischemia. Progressive atrophy. Multi sinus disease. POS - [id number] -------- FINAL REPORT -------- Dictated By: Imelda Fatima Dictated Date: 02/16/2025 17:39 ET Assigned Physician: Imelda Fatima Reviewed and Electronically Signed By: Imelda Fatima Signed Date: 02/17/2025 10:18 ET Workstation ID: [id number] Transcribed By: Self Edit Transcribed Date: 02/16/2025 18:14 ET Elly Lucas NP IMG MRI PROCEDURES Final Res ult * Prostate specific antigen screen (01/27/2025 3:16 PM EDT) PSA 3.96 0.00 - 4.00 ng/mL LAB CHEMISTRY METHOD 01/27/2025 7:40 PM EDT [facility] Blood Venous blood specimen / Unknown Venipuncture / Unknown 01/27/2025 3:16 PM EDT 01/27/2025 3:16 PM EDT Narrative [facility] - 01/27/2025 7:40 PM EDT The Siemens Advia Centaur Chemiluminescent Immunoassay is used. Results obtained with different assay methods or kits cannot be used interchangeably. Results cannot be interpreted as absolute evidence of the presence or absence of malignant disease. us Elly Lucas NP LAB BLOOD ORDERABLES Final R esult [facility] [address] [place] [address], [place] [phone] * (ABNORMAL) Urinalysis with reflex microscopic and culture (01/27/2025 3:16 PM EDT) Specific [place] Urine 1.035(H) 1.003 - 1.030 LAB URINALYSIS - AUTOMATED METHOD 01/27/2025 4:44 PM [facility] pH, Urine 5.5 5.0 - 8.0 pH LAB URINALYSIS - AUTOMATED METHOD 01/27/2025 4:44 PM [facility] Leukocytes, Urine Negative Negative LAB URINALYSIS - AUTOMATED METHOD 01/27/2025 4:44 PM [facility] Nitrite, Urine Negative Negative LAB URINALYSIS - AUTOMATED METHOD 01/27/2025 4:44 PM [facility] Protein, Urine 30(A) <=Trace mg/dL LAB URINALYSIS - AUTOMATED METHOD 01/27/2025 4:44 PM [facility] Glucose, Urine Negative Negative mg/dL LAB URINALYSIS - AUTOMATED METHOD 01/27/2025 4:44 PM [facility] Ketones, Urine Trace(A) Negative mg/dL LAB URINALYSIS - AUTOMATED METHOD 01/27/2025 4:44 PM [facility] Urobilinogen, Urine 1.0 0.2 - 1.0 mg/dL LAB URINALYSIS - AUTOMATED METHOD 01/27/2025 4:44 PM [facility] Bilirubin, Urine Negative Negative LAB URINALYSIS - AUTOMATED METHOD 01/27/2025 4:44 PM [facility] Blood, Urine Negative Negative LAB URINALYSIS - AUTOMATED METHOD 01/27/2025 4:44 PM [facility] RBC, Urine 2.9 0 - 4 /HPF LAB URINALYSIS - AUTOMATED METHOD 01/27/2025 4:44 PM EDT [facility] WBC, Urine 1.2 0 - 4 /HPF LAB URINALYSIS - AUTOMATED METHOD 01/27/2025 4:44 PM EDT [facility] Squamous Epithelial, Urine 5 0 - 60 /LPF LAB URINALYSIS - AUTOMATED METHOD 01/27/2025 4:44 PM EDT [facility] Bacteria, Urine Negative Negative /HPF LAB URINALYSIS - AUTOMATED METHOD 01/27/2025 4:44 PM EDT [facility] Hyaline Casts, Urine 1.2 0 - 3 /LPF LAB URINALYSIS - AUTOMATED METHOD 01/27/2025 4:44 PM EDT [facility] Urine Urine specimen obtained by clean catch procedure / Unknown Non-blood Collection / Unknown 01/27/2025 3:16 PM EDT 01/27/2025 3:16 PM EDT Elly Lucas ESCROW CLERK LAB URINE ORDERABLES Final R esult Performing Organization Address City/[facility]/ZIP Co de Phone Number [facility] [address] [place] [address], [place] [phone] * Cantrell urine culture tube (01/27/2025 3:16 PM EDT) Extra Tube Hold for add-ons. 01/27/2025 5:01 PM EDT [facility] Comment:Auto resulted. Urine Urine specimen obtained by clean catch procedure / Unknown Non-blood Collection / Unknown 01/27/2025 3:16 PM EDT 01/27/2025 3:16 PM EDT Elly Lucas ESCROW CLERK LAB URINE ORDERABLES Final R esult [facility] [address] [place] [address], [place] [phone] * (ABNORMAL) Lipid panel with reflex to direct LDL (01/27/2025 3:16 PM EDT) Cholesterol 133 0 - 200 mg/dL LAB CHEMISTRY METHOD 01/27/2025 7:03 PM EDT [facility] Triglycerides 146 0 - 150 mg/dL LAB CHEMISTRY METHOD 01/27/2025 7:03 PM EDT [facility] HDL 32(L) >=40 mg/dL LAB CHEMISTRY METHOD 01/27/2025 7:03 PM EDT [facility] LDL Calculated 72 0 - 100 mg/dL LAB CHEMISTRY METHOD 01/27/2025 7:03 PM EDT [facility] Comment:Estimated LDL Calcul ated using equation: Total cholesterol - HDL cholesterol - (Triglycerides/5) VLDL Cholesterol Donte 29.2 mg/dL LAB CHEMISTRY METHOD 01/27/2025 7:03 PM EDT [facility] Non HDL Chol. (LDL+VLDL) 101 <145 mg/dL LAB CHEMISTRY METHOD 01/27/2025 7:03 PM T [facility] Chol/HDL Ratio 4.2 0.0 - 4.4 LAB CHEMISTRY METHOD 01/27/2025 7:03 PM T [facility] Blood Venous blood specimen / Unknown Venipuncture / Unknown 01/27/2025 3:16 PM EDT 01/27/2025 3:16 PM EDT us Elly Lucas ESCROW CLERK LAB BLOOD ORDERABLES Final R esult [facility] [address] [place] [address], [place] [phone] * (ABNORMAL) Comprehensive metabolic panel (01/27/2025 3:16 PM EDT) Sodium 139 133 - 145 mmol/L LAB CHEMISTRY METHOD 01/27/2025 7:03 PM EDT [facility] Potassium 3.8 3.5 - 5.5 mmol/L LAB CHEMISTRY METHOD 01/27/2025 7:03 PM [facility] Chloride 107 96 - 110 mmol/L LAB CHEMISTRY METHOD 01/27/2025 7:03 PM [facility] CO2 30 21 - 32 mmol/L LAB CHEMISTRY METHOD 01/27/2025 7:03 PM [facility] Anion Gap 2(L) 3 - 11 LAB CHEMISTRY METHOD 01/27/2025 7:03 PM [facility] Glucose 101(H) 70 - 100 mg/dL LAB CHEMISTRY METHOD 01/27/2025 7:03 PM [facility] BUN 19 5 - 25 mg/dL LAB CHEMISTRY METHOD 01/27/2025 7:03 PM [facility] Creatinine 1.27 0.70 - 1.30 mg/dL LAB CHEMISTRY METHOD 01/27/2025 7:03 PM [facility] eGFR 64 >=60 mL/min/1. 73m2 LAB CHEMISTRY METHOD 01/27/2025 7:03 PM [facility] Comment:Calculation based on the Chronic Kidney Disease Epidemiology Collaboration (CKD-EPI) equation refit without adjustment for race. BUN/Creatinine Ratio 15.0 LAB CHEMISTRY METHOD 01/27/2025 7:03 PM [facility] Calcium 9.1 8.5 - 10.5 mg/dL LAB CHEMISTRY METHOD 01/27/2025 7:03 PM [facility] AST (SGOT) 30 10 - 42 unit/L LAB CHEMISTRY METHOD 01/27/2025 7:03 PM [facility] ALT (SGPT) 30 10 - 60 unit/L LAB CHEMISTRY METHOD 01/27/2025 7:03 PM [facility] Alkaline Phosphatase 160(H) 42 - 121 unit/L LAB CHEMISTRY METHOD 01/27/2025 7:03 PM EDT [facility] Total Protein 7.5 6.0 - 8.0 g/dL LAB CHEMISTRY METHOD 01/27/2025 7:03 PM EDT [facility] Albumin 4.3 3.2 - 5.0 g/dL LAB CHEMISTRY METHOD 01/27/2025 7:03 PM EDT [facility] Total Bilirubin 0.3 0.0 - 1.4 mg/dL LAB CHEMISTRY METHOD 01/27/2025 7:03 PM EDT [facility] Blood Venous blood specimen / Unknown Venipuncture / Unknown 01/27/2025 3:16 PM EDT 01/27/2025 3:16 PM EDT us Elly Lucas NP LAB BLOOD ORDERABLES Final R esult [facility] [address] [place] [address], * CT Head wo Contrast (01/27/2025 3:08 PM EDT) Anatomical Region Laterality Modality Head and Neck Computed Tomogra phy 01/27/2025 6:36 PM EDT Narrative 01/27/2025 6:[address] of the head without intravenous contrast. History follow-up on transient ischemic attack. History of CVA. Recent speech changes. Examination was performed on multidetector scanner without administration of intravenous contrast. Comparison with prior CTs, latest from 12/23/2022. There is no evidence of midline shift, extra or intra-axial blood or fluid collections. There is no evidence of masses or mass effect in the brain and cerebellum. There is interval progression of the dilatation of the lateral ventricles and interval progression of the extensive periventricular and supraventricular white matter hypodensities with confluent areas in the occipital lobes, left more than right. The appearances are nonspecific. Most likely due to small vessel ischemia. No obvious territorial infarctions were identified. No focal abnormalities were identified in the posterior fossa. Fourth ventricle and basal cisterns are midline and patent. There is mucosal thickening in the sphenoid sinus and ethmoid air cells. There is no suspicious bone abnormalities. CONCLUSIONS: Significant interval progression of the supratentorial white matter hypodensities. No obvious territorial infarction identified. MRI examination of the second is recommended for better assessment and to differentiate chronic versus more acute abnormalities. -------- FINAL REPORT -------- Dictated By: Micaela Tovar Dictated Date: 01/27/2025 18:36 ET Assigned Physician: Micaela Tovar Reviewed and Electronically Signed By: Micaela Tovar Signed Date: 01/27/2025 18:44 ET Workstation ID: [id number] Transcribed By: Self Edit Transcribed Date: 01/27/2025 18:36 ET Procedure Note Micaela Tovar MD - 01/27/2025 CT of the head without intravenous contrast. History follow-up on transient ischemic attack. History of CVA. Recentspeech changes. Examination was performed on multidetector scanner without administrationof intravenous contrast. Comparison with prior CTs, latest from 12/23/2022.There is no evidence of midline shift, extra or intra-axial blood or fluidcollections. There is no evidence of masses or mass effect in the brainand cerebellum. There is interval progression of the dilatation of thelateral ventricles and interval progression of the extensiveperiventricular and supraventricular white matter hypodensities withconfluent areas in the occipital lobes, left more than right. Theappearances are nonspecific. Most likely due to small vessel ischemia. Noobvious territorial infarctions were identified. No focal abnormalitieswere identified in the posterior fossa. Fourth ventricle and basalcisterns are midline and patent. There is mucosal thickening in the sphenoid sinus and ethmoid air cells.There is no suspicious bone abnormalities. CONCLUSIONS: Significant interval progression of the supratentorial whitematter hypodensities. No obvious territorial infarction identified. MRIexamination of the second is recommended for better assessment and todifferentiate chronic versus more acute abnormalities. -------- FINAL REPORT -------- Dictated By: Micaela Tovar Dictated Date: 01/27/2025 18:36 ET Assigned Physician: Micaela Tovar Reviewed and Electronically Signed By: Micaela Tovar Signed Date: 01/27/2025 18:44 ET Workstation ID: [id number] Transcribed By: Self Edit Transcribed Date: 01/27/2025 18:36 ET Elly Lucas ESCROW CLERK IMG CT PROCEDURES Final Resu lt * CT Lung Screening (09/14/2024 3:13 PM EDT) Anatomical Region Laterality Modality Chest Computed Tomogra phy 09/16/2024 1:56 PM EDT Impressions 09/16/2024 2:00 PM EDT No new or suspicious pulmonary nodules. Lung RADS 2-benign. Recommend continued screening with low-dose chest CT in 12 months. -------- FINAL REPORT -------- Dictated By: SHMUEL STEARNS Dictated Date: 09/16/2024 13:56 ET Assigned Physician: SHMUEL STEARNS Reviewed and Electronically Signed By: SHMUEL STEARNS Signed Date: 09/16/2024 14:00 ET Workstation ID: [id number] Transcribed By: Self Edit Transcribed Date: 09/16/2024 13:56 ET Narrative 09/16/2024 2:00 PM EDT PROCEDURE: Chest CT INDICATION: Lung cancer screening, current smoker, 48 pack year smoking history TECHNIQUE: Chest CT without contrast. Multi planar reformats were created and interpreted. The examination was performed utilizing dose reduction techniques. Total DLP 175 COMPARISON: 08/11/2023. FINDINGS: LUNGS/PLEURA: Central airways are patent. Mild emphysema and chronic bronchitis. Scattered 1 to 2 mm left fissural nodules are unchanged. No new or suspicious pulmonary nodules. No pleural effusion or pneumothorax. Stable medial scarring in the right middle lobe. MEDIASTINUM: Thyroid gland is normal. No mediastinal or hilar lymphadenopathy. Small hiatal hernia. Cardiac chambers are normal in size. Mild coronary calcifications. No pericardial effusion. CHEST WALL: No axillary lymphadenopathy or superficial hematoma. UPPER ABDOMEN:Right posterior hepatic cyst. BONES: No acute fracture. Scattered degenerative changes seen throughout the bones. Procedure Note Shmuel Stearns MD - 09/16/2024 PROCEDURE: Chest CT INDICATION: Lung cancer screening, current smoker, 48 pack year smokinghistory TECHNIQUE: Chest CT without contrast. Multi planar reformats were createdand interpreted. The examination was performed utilizing dose reductiontechniques. Total DLP 175 COMPARISON: 08/11/2023. FINDINGS: LUNGS/PLEURA: Central airways are patent. Mild emphysema and chronicbronchitis. Scattered 1 to 2 mm left fissural nodules are unchanged. Nonew or suspicious pulmonary nodules. No pleural effusion or pneumothorax.Stable medial scarring in the right middle lobe. MEDIASTINUM: Thyroid gland is normal. No mediastinal or hilarlymphadenopathy. Small hiatal hernia. Cardiac chambers are normal insize. Mild coronary calcifications. No pericardial effusion. CHEST WALL: No axillary lymphadenopathy or superficial hematoma. UPPER ABDOMEN:Right posterior hepatic cyst. BONES: No acute fracture. Scattered degenerative changes seen throughoutthe bones. IMPRESSION: No new or suspicious pulmonary nodules. Lung RADS 2-benign. Recommendcontinued screening with low-dose chest CT in 12 months. -------- FINAL REPORT -------- Dictated By: SHMUEL STEARNS Dictated Date: 09/16/2024 13:56 ET Assigned Physician: SHMUEL STEARNS Reviewed and Electronically Signed By: SHMUEL STEARNS Signed Date: 09/16/2024 14:00 ET Workstation ID: [id number] Transcribed By: Self Edit Transcribed Date: 09/16/2024 13:56 ET Result [facility] Armani Zuñiga MD IM CT PROCEDURES Final Result * Depression Screening (02/20/2024) [facility] Depression Screening Abstracted Result [facility] Provider HEALTH MAINTENANCE Final Result * Stool Based Tests (FOBT/FIT) (03/25/2023) [facility] Colorectal Cancer Screening: Stool Based Tests No interpretation , abstracted Result [facility] Jaida BORGES HEALTH MAINTENANCE Final Result * Hepatitis C Screening (03/23/2019) [facility] Hepatitis C Screening Abstracted Result [facility] Jaida BORGES HEALTH MAINTENANCE Final Result from Last 3 Months or Most Recently Relevant to Health Maintenance Insurance [facility] [place] [address] Advance Directives Documents on File Type Date Recorded 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 Care 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 (hx) 12/27/2022 AD ARCHER DIRECTIVE Health Care Decision (hx) 12/27/2022 AD ARCHER DIRECTIVE Health Care Decision (hx) 12/27/2022 AD ARCHER DIRECTIVE Health Care Decision (hx) 12/27/2022 AD ARCHER DIRECTIVE Health Care Decision (hx) 12/27/2022 AD ARCHER DIRECTIVE Health Care Decision (hx) 12/27/2022 AD ARCHER DIRECTIVE Health Care Decision (hx) 12/27/2022 AD ARCHER DIRECTIVE Health Care Decision (hx) 12/27/2022 AD ARCHER DIRECTIVE Health Care Decision (hx) 12/27/2022 AD ARCHER DIRECTIVE Care Teams Facilities Planner Relationship Specialty Start Date End Date Humberto Alvarez MD [address] [place] [address] PCP - General Internal Medicine 04/24/21
--- OUTSIDE RECORDS SUMMARY | 2025-03-13 20:35 | XMS_ITS | Encounter Summary ---
Author Organization [facility] Address [address] [place] [address] Care Team Providers Care Relay Adjuster Name Role Phone Humberto Alvarez MD Primary Care Provider [phone] Encounter Details Date Type Department Care Team (Late Contact Info) Description 03/11/2025 Telephone Adult [facility] [address] [place] [address] Humberto Alvarez MD [address] [place], [place] [phone] Social History Tobacco Use Types Packs/Day Years [...] as of this encounter Progress Notes * Ladonna Kimball - 03/11/2025 3:10 PM EDT Error documented in this encounter Plan of Treatment Upcoming Encounters Date Type Department Care Team ([facility] Contact Info) Description 03/18/2025 2:30 PM EDT Treatment [facility] [place] 175 [facility] [address] [place] [address] Rosana Chatterjee, AKOSUA 05/17/2025 1:00 PM EST Office Visit [facility] Medicine [facility] [address] [place], [place] [phone] Elly Lucas NP [address] [place], [place] 05/24/2025 2:00 PM EST Office Visit Pulmonology - [place] 175 [facility] [address] [place] [address] Bennie Egan MD 175 [facility] [address] [place] [address] 02/15/2026 12:00 PM EDT Ancillary Procedure [facility] [address] [facility] [address] [place] [address] 02/23/2026 1:00 PM EDT Office Visit Vascular Surgery - [place] 300 [facility] [address] [place] [address] Larissa Santiago MD [address] [place] [phone] documented as of this encounter Visit Diagnoses Not on filedocumented in this encounter Care Teams Relay Adjuster Relationship Specialty Start Date End Date Humberto Alvarez MD [address] [place] [address] PCP - General Internal Medicine 04/24/21 documented as of this encounter
--- OUTSIDE RECORDS SUMMARY | 2025-03-13 20:35 | XMS_ITS | Encounter Summary ---
Author Organization [facility] Address [address] [place] [address] Care Team Providers Care Loss Prevention Manager Name Role Phone Humberto Alvarez MD Primary Care Provider [phone] Reason for Visit * Reason Onset Date Comments MRI of head 02/23/2025 Completed 02/16/25 Encounter Details Date Type Department Care Team (Late st Contact Info) Description 02/23/2025 Telephone Adult Medicine [facility] [address] [place], [place] [phone] Elly Lucas NP [address] [place], [place] Social History Tobacco Use Types Packs/Day [...] as of this encounter Progress Notes * Elly Lucas NP - 02/23/2025 11:01 PM EDT 01/27/25: The patient was seen in the office due to normal gait, imbalance, coordination issues and frequent falls. 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 01/27/25: CT scan of the head was completed and showed Significant interval progression of the supratentorial white matter hypodensities. signifies ongoing cerebral small vessel disease and is associated with increased risk of cognitive decline, stroke, and functional impairment. No obvious territorial infarct identified however, radiology recommended follow-up with MRI of the head. 02/17/24: MRI of the brain complete and should Progressive fairly extensive white matter signal abnormalities, probably related to chronic small vessel ischemic disease. No evidence of recent ischemia.Progressive atrophy. Patient was referred to physical therapy for balance and safety. Neurology appointment was canceled unsure why. Will speak to the patient and partner documented in this encounter Plan of Treatment Upcoming Encounters Date Type Department Care Team (Late st Contact Info) Description 03/18/2025 2:30 PM EDT Treatment [facility] [place] 175 [facility] [address] [place] [phone] Rosana Chatterjee, PT 05/17/2025 1:00 PM EST Office Visit Adult Medicine [facility] [address] [place], [place] [phone] Elly Lucas NP [address] [place], [place] 05/24/2025 2:00 PM EST Office Visit Pulmonology - [place] 175 [facility] [address] [place] [phone] Bennie Egan MD 175 [facility] [address] [place] [address] 02/15/2026 12:00 PM EDT Ancillary Procedure [facility] [address] 300 [facility] [address] [place] [phone] 02/23/2026 1:00 PM EDT Office Visit Vascular Surgery - [place] 300 [facility] [address] [place] [phone] Larissa Santiago MD [address] [place] [address] documented as of this encounter Visit Diagnoses Diagnosis Balance problem- Primary Abnormality of gait Abnormality of gait History of cardioembolic cerebrovascular accident (CVA) Frequent falls Abnormal CT scan, head documented in this encounter Care Teams Loss Prevention Manager Relationship Specialty Start Date End Date Humberto Alvarez MD [address] [place] [phone] PCP - General Internal Medicine 04/24/21 documented as of this encounter
--- OUTSIDE RECORDS SUMMARY | 2025-03-13 20:35 | XMS_ITS | Clinical Summary ---
Author Organization [facility] Address [address] [place] [address] Care Team Providers Care Salvage Grinder Name Role Phone Unavailable Primary Care Provider Unavailabl e Medications Medication Sig Dispensed Refills Start Date End Date Status warfarin (COUMADIN) 5 MG tablet 0 01/07/2024 Active sertraline (ZOLOFT) 25 MG tablet TAKE 1 TABLET BY MOUTH ONCE DAILY ALONG WITH 50MG DOSE FOR TOTAL DOSE OF 75MG ONCE DAILY 0 2024 Active atorvastatin (LIPITOR) tablet 80 mg Take 1 tablet (80 mg total) by mouth daily. 0 01/07/2024 Active amLODIPine (NORVASC) tablet 2.5 mg Take 1 tablet (2.5 mg total) by mouth daily. 0 Active omeprazole (PriLOSEC) 20 MG capsule Take 1 capsule (20 mg total) by mouth daily. 0 Active Active Problems Problem Noted Date Diagnosed Date Stroke 04/06/2024 Social History Tobacco Use Types Packs/Day Years Used Date Smoking Tobacco: Never Assessed Sex and Gender Information Value Date Recorded Sex Assigned at Male 02/24/2024 11:33 AM EDT Gender Identity Not on file Sexual Orientation Not on file Job Start Date Occupation Industry Not on file Not on file Not on file Last Filed Vital Signs Vital Sign Reading Time Taken Comments Blood Pressure 127/85 04/06/2024 3:34 PM EDT Pulse 83 04/06/2024 3:34 PM EDT Temperature 36 C (96.8 F) 04/06/2024 3:34 PM EDT Respiratory Rate - - Oxygen Saturation - - Inhaled Oxygen Concentration - - Weight 95.3 kg (210 lb) 04/06/2024 3:34 PM EDT Height 188 cm (6' 2 ) 04/06/2024 3:34 PM EDT Body Mass Index 26.96 04/06/2024 3:34 PM EDT Plan of Treatment Health Maintenance Due Date Last Done Comments Hepatitis C Screening 1962 Depression Screening 1974 Preventative Health Evaluation 02/22/1980 DTap / Tdap / Td (1 - Tdap) 1981 Colon Cancer Screening (Colonoscopy) 2007 Shingrix-Zoster Vaccine (1 o f 2) 02/22/2012 COVID-19 Vaccine (3 - 2024-2 6 season) 2025 10/02/2020, 09/09/2020 Influenza Vaccine (#1) 2025 RSV Adult > 60+ Yrs or (1 - 1-dose 75+ series) 2037 Hepatitis B Vaccines Aged Out No long er eligible based on patient's age to complete this topic Pneumococcal Vaccine Aged Out No long er eligible based on patient's age to complete this topic RSV Ped < 20 months Aged Out No longe r eligible based on patient's age to complete this topic
[2025-03-13 20:39] LABS: Anion Gap 14 (12-20); Blood Urea Nitrogen 14 mg/dL (9-16); Calcium 9.0 mg/dL (8.4-10.2); Carbon Dioxide 23 mmol/L (22-29); Chloride 107 mmol/L (96-108); Cholesterol 130 mg/dL (<200); Creatinine Clr Calc Pharmacy 87.0; Estimated Glomerular Filt Rate > 60; HDL Cholesterol 25 mg/dL (>40); Potassium 3.5 mmol/L (3.3-5.1); Sodium 140 mmol/L (135-145); Triglycerides 114 mg/dL (<150)
[2025-03-13 20:48] LABS: Troponin-I High Sensitivity < 2.7 ng/L (<3.5-35.0)
[2025-03-13 21:14] LABS: Cannabinoid Screen Urine POSITIVE (Not Detect)
--- NOTE | 2025-03-13 21:54 | PC.NURSE ---
pt spouse at bedside, IV from EMS in R AC flushed, working well, fluids hung per AUG.
--- NOTE | 2025-03-13 22:55 | MHC.EDTECH ---
EKG DONE PRIOR TO ARRIVAL, MARKED COMPLETE BY MYSELF TO COMPLETE TASK
[2025-03-14] VITALS (8 sets, daily range): BP systolic 121–162; BP diastolic 76–93; PULSE 63–83; RESP 16–20; TEMP 36.1–37.2; O2SAT 94–98
--- NOTE | 2025-03-14 | P.HPHOSP_ITS ---
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 Patient states he awakened normally, had to donuts for breakfast and then sat and watched TV and read the paper and suddenly experienced these new onset symptoms. At the time patient denied any chest pain, shortness of breath at rest, visual changes, headache or difficulty swallowing. Patient states he last took oxycodone obtained illicitly on the street last evening. Toxicology screen confirms the presence of oxycodone as well as marijuana. Patient states he uses marijuana minimum 2 times per day patient does not use edibles. Patient also denies any recent falls. Patient currently lives alone and manages his own medications. Patient currently drives. Workup in the ED included head CT and CTA of the head and neck that identified remote lacunar infarcts involving the right basal ganglia in the left basal ganglia. No hemorrhagic findings or shift found. Pituitary normal in size. Patient currently has full range of movement with the right upper extremity. Patient is right-hand dominant. Patient states the numbness that he experiences resolved. Neuro exam at this time is also reassuring. Patient's lipid profile was completed in his triglycerides are 114, cholesterol 130, LDL 83 and HDL 25. Hemoglobin A1c is pending. Patient does not take aspirin every day but is compliant with his Coumadin dosing and current INR is 2.7. There are no signs of spontaneous bleeding, bruising or petechiae on exam. Patient denies any liver history including cirrhosis, hepatitis or gallbladder issues. Patient is not having any problems with swallowing at this time. BNP pending. Patient being admitted to rule out stroke. Patient will also be seen by addictions noting illicit use of oxycodone. Review of Systems 2 Review of Systems: Patient currently denies any chest pain, shortness of breath at rest or with exertion. Patient is not having any abdominal pain, nausea, vomiting, fever or chills. Patient is not having issues with constipation or diarrhea. Patient denies any headache or visual changes. Patient also denies any recent falls. Yes all other systems are reviewed and are negative [facility] Medical History (Updated 03/14/25 @ 01:05 by PEPE Hernandez) Left breast lump Antithrombin 3 deficiency Marijuana dependence Vertebral artery stenosis Poor dentition Oxycodone use disorder, moderate Halcion use disorder, severe CVA (cerebral vascular accident) Hyperlipidemia GERD (gastroesophageal reflux disease) Hypercoagulable state Cognitive capacity: Alert and orientated x3 Functional capacity: independent ambulation (Patient lives alone and drives) Social History Household Members: Significant Other Housing: House Do you presently have visiting nurse or other home services: No Alcohol intake: never Patient Tobacco Use Status: Current everyday Tobacco user Tobacco use type: Cigarette Cigarette Packs Per Day: 1 Cigarettes Per Day: 20.0 Years Smoked: 50 Smoked in Last 30 Days: Yes Use of substances other than those prescribed or required for medical reasons: No Substance Use Type: Marijuana Advance Directives: No Advance Directives Information Provided: No Ebola Risk: Travel/Contact With Anyone From Affected Area/s: No Has Patient Experienced Ebola Symptoms: No Meds Allergies Allergy/AdvReac Type Severity Reaction Status Date / Time lisinopril (From ZESTRIL) Allergy Unknown UNK Verified 03/13/25 20:20 Active Medications: Current Medications Acetaminophen (Acetaminophen 325 Mg Tablet) 650 mg PO Q6H PRN PRN Reason: Pain, Mild 1-3,fever,headache Albuterol/Ipratropium (Albuterol/Iprat 2.5/0.5mg 3 Ml Ampul.Neb) 3 ml INHALE Q4H PRN PRN Reason: Shortness of Breath/Wheezing Calcium Carbonate (Calcium Carbonate 750 Mg Tab.Chew) 750 mg PO Q4H PRN PRN Reason: Heartburn Magnesium Hydroxide (Milk Of Magnesia 30 Ml Oral.Susp) 30 ml PO DAILY PRN PRN Reason: Constipation Melatonin (Melatonin 3 Mg Tablet) 6 mg PO BEDTIME PRN PRN Reason: Insomnia Ondansetron HCl (Ondansetron Hcl 4 Mg/2 Ml Vial) 4 mg IVPUSH Q8H PRN PRN Reason: Nausea and Vomiting Polyethylene Glycol (Polyethylene Glycol 3350 17 Gm Powd.Pack) 17 gm PO DAILY PRN PRN Reason: Constipation Senna (Sennosides 8.6 Mg Tablet) 17.2 mg PO BEDTIME SAPNA Sodium Chloride (0.9 % Sodium Chloride Flush 3 Ml Syringe) 3 ml IVFLUSH QSHIFT SAPNA Home Medications ?Medication ?Instructions ?Recorded ?Confirmed ?Last Taken ?Type omeprazole 20 mg capsule,delayed 1 cap PO DAILY 08/10/22 Unknown History release warfarin 5 mg tablet 7.5 mg PO DAILY 08/10/2208/30 Unknown History Physical Exam 2 Vital Signs and Narrative: Vital Signs: Last Vital Signs Temp 97.6 F 03/13/25 20:17 Pulse 81 03/13/25 20:17 Resp 17 03/13/25 20:17 Pulse Ox 99 03/13/25 20:17 O2 Del Method Room Air 03/13/25 20:17 BMI result Body Mass Index 27.2 Alert and orientated X3, able to give good history. Neuro: CN II-X11 intact, no deficits, visual acuity intact, no facial droop noted EYES: PERRLA, EOM intact, sclerae nonicteric ENT: hearing intact, no issues with swallowing, uvula midline, lips moist, nares patent no epistaxis Cardiac: S1 S2 RRR, no murmur, no JVD, no edema in Lower ext Pulmonary: lungs clear to auscultation B Abdominal: BS active in all 4 quadrants, no guarding, tenderness, rebounding MSK: strength 5/5 upper and lower extremities : no CVA tenderness no bladder distension Extremities: no edema in lower extremities, PT and DP pulses palpable +2, chronic skin discoloration noted Psych: mood stable, judgement and insight good Skin: No new rashes or lesions Results Labs 03/13/25 20:11 03/13/25 20:11 Labs: Laboratory Results - last 24 hr 03/13/25 03/13/25 03/13/25 19:34 20:11 20:18 MCV 85.4 MCH 29.8 MCHC 34.9 RDW 13.5 Plt Count 166 D MPV 9.5 Immature Gran % (Auto) 0.1 Neut % (Auto) 54.3 Lymph % (Auto) 33.9 [place] % (Auto) 6.7 Eos % (Auto) 3.9 Baso % (Auto) 1.1 Lymph # (Auto) 2.8 [place] # (Auto) 0.6 Eos # (Auto) 0.3 Baso # (Auto) 0.1 Abs Immat Gran (auto) 0.01 Absolute Neuts (auto) 4.5 Absolute Nucleated RBC 0.000 Nucleated RBC % (auto) 0.0 PT 27.6 H Whole Blood PT 30.1 H INR 2.4 H Whole Blood INR 2.5 H APTT 41.6 H VBG pH 7.47 H VBG pCO2 31 VBG pO2 74 VBG HCO3 23 VBG O2 Saturation 95.0 VBG Base Excess 1.1 Anion Gap 14 Estim Creat Clear Calc 87.0 Estimated GFR > 60 Random Glucose 91 Calcium 9.0 Troponin I High Sens < 2.7 Triglycerides 114 Cholesterol 130 LDL Cholesterol, Calc 83 HDL Cholesterol 25 L Urine Opiates Screen Ur Buprenorphine Scrn Ur Oxycodone Screen Urine Methadone Screen Urine Fentanyl Screen Ur Barbiturates Screen Ur Phencyclidine Scrn Ur Amphetamines Screen U Benzodiazepines Scrn Urine Cocaine Screen U Marijuana (THC) Screen Ethyl Alcohol < 10 03/13/25 20:57 MCV MCH MCHC RDW Plt Count MPV Immature Gran % (Auto) Neut % (Auto) Lymph % (Auto) [place] % (Auto) Eos % (Auto) Baso % (Auto) Lymph # (Auto) [place] # (Auto) Eos # (Auto) Baso # (Auto) Abs Immat Gran (auto) Absolute Neuts (auto) Absolute Nucleated RBC Nucleated RBC % (auto) PT Whole Blood PT INR Whole Blood INR APTT VBG pH VBG pCO2 VBG pO2 VBG HCO3 VBG O2 Saturation VBG Base Excess Anion Gap Estim Creat Clear Calc Estimated GFR Random Glucose Calcium Troponin I High Sens Triglycerides Cholesterol LDL Cholesterol, Calc HDL Cholesterol Urine Opiates Screen Not Detected Ur Buprenorphine Scrn Not Detected Ur Oxycodone Screen Positive H Urine Methadone Screen Not Detected Urine Fentanyl Screen Not Detected Ur Barbiturates Screen Not Detected Ur Phencyclidine Scrn Not Detected Ur Amphetamines Screen Not Detected U Benzodiazepines Scrn Not Detected Urine Cocaine Screen Not Detected U Marijuana (THC) Screen POSITIVE H Ethyl Alcohol ECG Attestation: I personally reviewed and interpreted this ECG as follows: (Normal sinus rhythm with QTC 451) Prior ECG tracings: available for review Imaging Radiologist's Impressions: CTA of the head and neck Findings: Soft tissues of the neck are unremarkable Superior aorta and branch vessels are unremarkable Right carotid: No stenosis . Right vertebral: No stenosis Left Carotid: No stenosis. Left Vertebral: No stenosis Impression: No stenosis No aneurysm or dissection Head CT Findings: Cortical sulci are prominent. Ventricles are symmetric. There are periventricular areas of white matter degeneration due to microangiopathy. There is a 4 mm and 8.5 mm right basal ganglia and a 5 mm left basal ganglia remote lacunar infarcts. 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 Patient being admitted to rule out CVA noting history and to help address use of non- prescribed use of oxycodone. Right-sided weakness with history of CVA and history of severe stenosis of right V1(2022) Symptoms have resolved MRI of the brain ordered for the a.m. Further workup based on MRI results to include neurological consultation Toxicology screen positive for oxycodone, patient is personally seen oxycodone off the street and using it to obtain a high. Patient last used Saturday evening. PT eval recommended Lipid panel notes triglycerides 114, cholesterol 130, LDL 83, HDL 25 - patient unsure if he currently takes a statin, med rec pending Hemoglobin A1c pending Continue telemetry, no history of arrhythmia CT of the neck does not demonstrate V1 stenosis, carotid stenosis Avoid hypotension Patient passed bedside swallow and cardiac diet ordered Antithrombin 3 deficiency on Coumadin INR today 2.7, ordered for the a.m. Patient is compliant with his Coumadin Med rec pending, dose accordingly based on INR GERD Omeprazole ordered Hyperlipidemia Med rec not completed Patient is not sure if he normally takes a statin Patient is not on aspirin daily Cardiac diet ordered Marijuana dependence No evidence of hyper cyclical emesis syndrome Patient has no plans to stop using Non-prescribed use of oxycodone Addictions consulted Patient educated on the dangers of using oxycodone off the street could be laced with dangerous drugs that could cause adverse symptoms DVT prophylaxis: Coumadin Med rec pending Full code status Quality Stroke Does the patient have a stroke diagnosis?: No Reason for No Anti-thrombotic by Day Two: N/A - Med Ordered VTE Prior VTE?: No VTE Risk Level:: Medical - moderate - high VTE Device Contraindication: N/A - Device Ordered VTE Drug Contraindication: N/A - Med Ordered
[2025-03-14 00:27] LABS: Magnesium 2.1 mg/dL (1.6-2.6)
[2025-03-14 00:28] LABS: NT Pro B Type Natriuretic Pept 32.9 pg/mL (<300)
[2025-03-14 06:05] LABS: MANUAL DIFF FLAG NO
[2025-03-14 06:12] LABS: Hematocrit 44.2 % (42.0-52.0); Hemoglobin 14.9 g/dl (14.0-18.0); Imm Gran Abs Auto 0.02 X10*3/uL (0.00-0.03); Imm Gran Pct Auto 0.2 % (0.0-0.4); Lymphocytes Absolute Auto 2.0 X10*3/uL (1.2-4.9); Mean Corpuscular HGB Conc 33.7 g/dl (31.0-36.0); Mean Corpuscular Hemoglobin 29.7 pg (27.0-33.0); Mean Corpuscular Volume 88.2 fL (80.0-98.0); NRBC Abs Auto 0.000 X10*3/uL (0.0-0.012); NRBC Pct Auto 0.0 /100WBC (0.0-0.2); Platelet Count 172 X10*3/uL (160-400); Red Blood Count 5.01 X10*6/uL (4.60-5.80); White Blood Count 8.1 X10*3/uL (4.8-10.8)
[2025-03-14 06:17] LABS: INTERNATIONAL NORM RATIO 2.0 (0.9-1.1); Prothrombin Time 23.2 SEC (10.9-12.4)
[2025-03-14 06:23] LABS: Anion Gap 11 (12-20); Blood Urea Nitrogen 11 mg/dL (9-16); Calcium 8.8 mg/dL (8.4-10.2); Carbon Dioxide 24 mmol/L (22-29); Chloride 109 mmol/L (96-108); Creatinine Clr Calc Pharmacy 85.3; Estimated Glomerular Filt Rate > 60; Potassium 3.7 mmol/L (3.3-5.1); Sodium 140 mmol/L (135-145)
[2025-03-14 06:24] LABS: Hemoglobin A1C 140.2981 umol/L; Total Hemoglobin (HGBA1C) 3751.0959 umol/L
--- NOTE | 2025-03-14 07:30 | P.PNIM_ITS ---
Subjective Subjective Date of Service: 03/14/25 Interval History: Went to examine the patient in the ED I explained to him that we do not have an MRI today, and likely the MRI were to happen tomorrow. He said ?I may not an emergency? I said ?we are not in charge of imaging and we do not/can not predict the chronicity of imaging? He said ?I want my medications NOW He said ?I do not want a this kind of Dr. anyways Thus far, imaging only reveal chronic vascular changes no acute changes Review of Systems Review of Systems: Yes Other (He appears very rude and combative to any exam, however I persisted and did) Physical Exam 2 Exam: Exam: General: AOx3, very rude , and very verbally combative Resp: CTA bilaterally CVS: S1, S2, RRR GI: +BS, NT, no distention Skin: Warm, dry Neuro: Cranial nerves II-XII grossly intact bilaterally. Motor grossly intact bilaterally (i did the exam even though the pt is very rude and not understanding of the care we are providing) Extremities: No edema Pt would need a stock mixer at all times Vital Signs: Vital Signs: Last Vital Signs Temp 98.4 F 03/14/25 04:23 Pulse 63 03/14/25 04:23 Resp 18 03/14/25 04:23 BP 134/78 03/14/25 04:23 Pulse Ox 94 03/14/25 04:23 O2 Del Method Room Air 03/14/25 04:23 BMI result Body Mass Index 27.2 General: AO X 3, no acute distress Resp: CTA bilateral, no accessory muscles used CVS: S1,S2,RRR GI: soft, non tender, non distended Neuro: motor grossly intact, alert Psych: appropriate affect, appropriate insight Objective Data Active Medications Acetaminophen (Acetaminophen 325 Mg Tablet) 650 mg PO Q6H PRN PRN Reason: Pain, Mild 1-3,fever,headache Albuterol/Ipratropium (Albuterol/Iprat 2.5/0.5mg 3 Ml Ampul.Neb) 3 ml INHALE Q4H PRN PRN Reason: Shortness of Breath/Wheezing Calcium Carbonate (Calcium Carbonate 750 Mg Tab.Chew) 750 mg PO Q4H PRN PRN Reason: Heartburn Magnesium Hydroxide (Milk Of Magnesia 30 Ml Oral.Susp) 30 ml PO DAILY PRN PRN Reason: Constipation Melatonin (Melatonin 3 Mg Tablet) 6 mg PO BEDTIME PRN PRN Reason: Insomnia Omeprazole (Omeprazole 20 Mg Capsule.Dr) 20 mg PO DAILY@0630 [facility] Last Admin: 03/14/25 05:45 Dose: 20 mg Documented By: SYDNEY Ondansetron HCl (Ondansetron Hcl 4 Mg/2 Ml Vial) 4 mg IVPUSH Q8H PRN PRN Reason: Nausea and Vomiting Polyethylene Glycol (Polyethylene Glycol 3350 17 Gm Powd.Pack) 17 gm PO DAILY PRN PRN Reason: Constipation Senna (Sennosides 8.6 Mg Tablet) 17.2 mg PO BEDTIME [facility] Sodium Chloride (0.9 % Sodium Chloride Flush 3 Ml Syringe) 3 ml IVFLUSH QSHIFT [facility] Last Admin: 03/14/25 01:09 Dose: Not Given Documented By: SYDNEY Non-Admin Reason: IV Running Labs 03/14/25 05:40 03/14/25 05:40 Labs: Laboratory Results - last 24 hr 03/13/25 03/13/25 03/13/25 19:34 20:11 20:18 MCV 85.4 MCH 29.8 MCHC 34.9 RDW 13.5 Plt Count 166 D MPV 9.5 Immature Gran % (Auto) 0.1 Neut % (Auto) 54.3 Lymph % (Auto) 33.9 [place] % (Auto) 6.7 Eos % (Auto) 3.9 Baso % (Auto) 1.1 Lymph # (Auto) 2.8 [place] # (Auto) 0.6 Eos # (Auto) 0.3 Baso # (Auto) 0.1 Abs Immat Gran (auto) 0.01 Absolute Neuts (auto) 4.5 Absolute Nucleated RBC 0.000 Nucleated RBC % (auto) 0.0 PT 27.6 H Whole Blood PT 30.1 H INR 2.4 H Whole Blood INR 2.5 H APTT 41.6 H VBG pH 7.47 H VBG pCO2 31 VBG pO2 74 VBG HCO3 23 VBG O2 Saturation 95.0 VBG Base Excess 1.1 Anion Gap 14 Estim Creat Clear Calc 87.0 Estimated GFR > 60 Random Glucose 91 Estimat Average Glucose Hemoglobin A1c % Calcium 9.0 Magnesium 2.1 Troponin I High Sens < 2.7 NT-Pro-B Natriuret Pep 32.9 Triglycerides 114 Cholesterol 130 LDL Cholesterol, Calc 83 HDL Cholesterol 25 L TSH 1.32 Urine Opiates Screen Ur Buprenorphine Scrn Ur Oxycodone Screen Urine Methadone Screen Urine Fentanyl Screen Ur Barbiturates Screen Ur Phencyclidine Scrn Ur Amphetamines Screen U Benzodiazepines Scrn Urine Cocaine Screen U Marijuana (THC) Screen Ethyl Alcohol < 10 03/13/25 03/14/25 20:57 05:40 MCV 88.2 MCH 29.7 MCHC 33.7 RDW 13.5 Plt Count 172 MPV 10.1 Immature Gran % (Auto) 0.2 Neut % (Auto) 64.0 Lymph % (Auto) 25.2 [place] % (Auto) 5.9 Eos % (Auto) 3.6 Baso % (Auto) 1.1 Lymph # (Auto) 2.0 [place] # (Auto) 0.5 Eos # (Auto) 0.3 Baso # (Auto) 0.1 Abs Immat Gran (auto) 0.02 Absolute Neuts (auto) 5.2 Absolute Nucleated RBC 0.000 Nucleated RBC % (auto) 0.0 PT 23.2 H Whole Blood PT INR 2.0 H Whole Blood INR APTT VBG pH VBG pCO2 VBG pO2 VBG HCO3 VBG O2 Saturation VBG Base Excess Anion Gap 11 L Estim Creat Clear Calc 85.3 Estimated GFR > 60 Random Glucose 93 Estimat Average Glucose 114 Hemoglobin A1c % 5.6 Calcium 8.8 Magnesium Troponin I High Sens NT-Pro-B Natriuret Pep Triglycerides Cholesterol LDL Cholesterol, Calc HDL Cholesterol TSH Urine Opiates Screen Not Detected Ur Buprenorphine Scrn Not Detected Ur Oxycodone Screen Positive H Urine Methadone Screen Not Detected Urine Fentanyl Screen Not Detected Ur Barbiturates Screen Not Detected Ur Phencyclidine Scrn Not Detected Ur Amphetamines Screen Not Detected U Benzodiazepines Scrn Not Detected Urine Cocaine Screen Not Detected U Marijuana (THC) Screen POSITIVE H Ethyl Alcohol Assessment and Plan (1) Right sided weakness: Status: Acute Assessment and Plan: 65-year-old male with past medical history CVA 2022, 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 Right-sided weakness- ? TIA , patient already on anticoagulation Aspirin 325 We will initiate aspirin 81 from tomorrow TTE MRI tomorrow fall, seizure, aspiration precautions Patient had stroke/TIA workup- thus far unrevealing Likely in the setting of a UD-heroin oxycodone Antithrombin 3 on Coumadin- patient's INR therapeutic, continue per his schedule Now we need an MRI which will likely be done tomorrow given limited resources today because of staffing Continue warfarin as he appears to have therapeutic INR Substance use -heroin, oxycodone, marijuana Cows protocol Substance use consulted HLD-continue home meds GERD continue omeprazole Patient's behavior is quite challenging-thus far no neurological deficits, given his substance use and not forthcoming with history and physical exam as documented by neurologist as well Patient we will continue to need hospitalization to get an MRI scan Neurological consult outpatient This note is constructed using voice recognition software. While every effort has been made to ensure accuracy, general service officer errors may have been included. Quality Stroke Does the patient have a stroke diagnosis?: No Reason for No Anti-thrombotic by Day Two: N/A - Med Ordered VTE Prior VTE?: No VTE Risk Level:: Medical - moderate - high VTE Device Contraindication: N/A - Device Ordered VTE Drug Contraindication: N/A - Med Ordered
--- NOTE | 2025-03-14 09:05 | PHA.MEDREC ---
Pharmacy Consult ? Medication Reconciliation Pharmacy has completed the medication reconciliation. Med rec done utilizing claims and discussion with patient and spouse at bedside. Pt confirms warfarin dosing 7.5 mg Mo and 5 mg on other days of the week. Last home dose was Saturday evening.
[2025-03-14] MEDS: 0.9 % Sodium Chloride Flush 3 ML SYRINGE IVFLUSH (15:56)
--- NOTE | 2025-03-14 15:59 | PM.NEUROCN ---
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 He was in hospital with complaints of difficulty walking and one-sided weakness. To my examination, he was resistant to questioning and examination stating that I should have known it anyway. Apparently there was no recent seizure-like episode. His initial INR was 2 suggesting that he was taking warfarin. Head CTA did not reveal any vascular stenosis. Review of Systems Review of Systems: No recent cold or flu-like illness PMFSH Past Medical History Medical History (Updated 03/14/25 @ 01:05 by PEPE Hernandez) Left breast lump Antithrombin 3 deficiency Marijuana dependence Vertebral artery stenosis Poor dentition Oxycodone use disorder, moderate Halcion use disorder, severe CVA (cerebral vascular accident) Hyperlipidemia GERD (gastroesophageal reflux disease) Hypercoagulable state Social History Social History Household Members: Significant Other Housing: House Do you presently have visiting nurse or other home services: No Alcohol intake: never Patient Tobacco Use Status: Current someday Tobacco user Tobacco use type: Cigarette Cigarette Packs Per Day: 1 Cigarettes Per Day: 20.0 Years Smoked: 50 Smoked in Last 30 Days: Yes Use of substances other than those prescribed or required for medical reasons: No Substance Use Type: Marijuana Advance Directives: No Advance Directives Information Provided: No Nutrition Risks: No Nutritional Risk Travel History Ebola Risk: Travel/Contact With Anyone From Affected Area/s: No Has Patient Experienced Ebola Symptoms: No Meds Allergies Allergy/AdvReac Type Severity Reaction Status Date / Time lisinopril (From ZESTRIL) Allergy Unknown UNK Verified 03/13/25 20:20 Active Medications: Current Medications Acetaminophen (Acetaminophen 325 Mg Tablet) 650 mg PO Q6H PRN PRN Reason: Pain, Mild 1-3,fever,headache Albuterol/Ipratropium (Albuterol/Iprat 2.5/0.5mg 3 Ml Ampul.Neb) 3 ml INHALE Q4H PRN PRN Reason: Shortness of Breath/Wheezing Amlodipine Besylate (Amlodipine Besylate 2.5 Mg Tablet) 2.5 mg PO BEDTIME [facility]; Protocol Atorvastatin Calcium (Atorvastatin Calcium 80 Mg Tablet) 80 mg PO BEDTIME [facility] Calcium Carbonate (Calcium Carbonate 750 Mg Tab.Chew) 750 mg PO Q4H PRN PRN Reason: Heartburn Magnesium Hydroxide (Milk Of Magnesia 30 Ml Oral.Susp) 30 ml PO DAILY PRN PRN Reason: Constipation Melatonin (Melatonin 3 Mg Tablet) 6 mg PO BEDTIME PRN PRN Reason: Insomnia Omeprazole (Omeprazole 20 Mg Capsule.) 20 mg PO DAILY@0630 [facility] Last Admin: 03/14/25 05:45 Dose: 20 mg Ondansetron HCl (Ondansetron Hcl 4 Mg/2 Ml Vial) 4 mg IVPUSH Q8H PRN PRN Reason: Nausea and Vomiting Polyethylene Glycol (Polyethylene Glycol 3350 17 Gm Powd.Pack) 17 gm PO DAILY PRN PRN Reason: Constipation Senna (Sennosides 8.6 Mg Tablet) 17.2 mg PO BEDTIME [facility] Sodium Chloride (0.9 % Sodium Chloride Flush 3 Ml Syringe) 3 ml IVFLUSH QSHIFT [facility] Last Admin: 03/14/25 15:56 Dose: 3 ml Warfarin Sodium (Warfarin Sodium 7.5 Mg Tablet) 7.5 mg PO MOTUWE@1800 SAPNA Warfarin Sodium (Warfarin Sodium 5 Mg Tablet) 5 mg PO SUTHFRSA@1800 [facility] Home Medications ?Medication ?Instructions ?Recorded ?Confirmed ?Last Taken ?Type omeprazole 20 mg capsule,delayed 1 cap PO DAILY@0630 08/10/22 03/14/25 03/12/25 History release warfarin 5 mg tablet 7.5 mg PO MOTUWE@1800 08/10/22 03/14/25 03/10/25 History amlodipine 2.5 mg tablet 2.5 mg PO BEDTIME 03/14/25 03/14/25 03/12/25 History atorvastatin 80 mg tablet 80 mg PO BEDTIME 03/14/25 03/14/25 03/12/25 History warfarin 5 mg tablet 5 mg PO SUTHFRSA@1800 03/14/25 03/14/25 03/12/25 History Physical Exam Vital Signs: Vital Signs: Last Vital Signs Temp 99 F 03/14/25 15:48 Pulse 83 03/14/25 15:48 Resp 20 03/14/25 15:48 BP 152/83 H 03/14/25 15:48 Pulse Ox 96 03/14/25 15:48 O2 Del Method Room Air 03/14/25 15:48 BMI result Body Mass Index 27.2 Neuro: Other: He is alert and awake with normal spontaneity of speech fluency comprehension and vague affect. He is not cooperative to questioning or examination. When I saw him he was sitting on the bedside and finish urinated. He put the urinal down and then when back to the bed. There was no obvious focal weakness. But examination was limited. Results Labs 03/14/25 05:40 03/14/25 05:40 Labs: Short CBC 03/13/25 03/14/25 Range/Units 20:11 05:40 WBC 8.2 8.1 (4.8-10.8) X10*3/uL Hgb 14.9 14.9 (14.0-18.0) g/dl Hct 42.7 44.2 (42.0-52.0) % Plt Count 166 D 172 (160-400) X10*3/uL BMP 03/13/25 03/14/25 20:11 05:40 Sodium 140 140 Potassium 3.5 3.7 Chloride 107 109 H Carbon Dioxide 23 24 BUN 14 11 Creatinine 1.01 1.03 Calcium 9.0 8.8 CTA of brain revealed moderately severe diffuse cerebral atrophy and moderately severe chronic microvascular ischemic changes Assessment and Plan (1) Right sided weakness: Status: Acute 65 years old man with underlying significant microvascular ischemic disease of brain and atrophy impacting him physically and cognitively came to hospital with new onset of right-sided weakness and difficulty walking. To my examination, he was not cooperative with interview or exam. His INR was therapeutic. As far as precise diagnosis is concerned, noncontrast MRI of brain is recommended. PT OT consultation is recommended Procedures Date of Service Date of Service: 03/14/25
[2025-03-15 03:35] VITALS: BP 123/64; PULSE 67; RESP 16; TEMP 36.1; O2SAT 96
--- NOTE | 2025-03-15 07:28 | P.PNIM_ITS ---
Subjective Subjective Date of Service: 03/15/25 Physical Exam 2 Vital Signs: Vital Signs: Last Vital Signs Temp 97 F 03/15/25 03:35 Pulse 67 03/15/25 03:35 Resp 16 03/15/25 03:35 BP 123/64 03/15/25 03:35 Pulse Ox 96 03/15/25 03:35 O2 Del Method Room Air 03/15/25 03:35 BMI result Body Mass Index 27.2 Objective Data Active Medications Acetaminophen (Acetaminophen 325 Mg Tablet) 650 mg PO Q6H PRN PRN Reason: Pain, Mild 1-3,fever,headache Albuterol/Ipratropium (Albuterol/Iprat 2.5/0.5mg 3 Ml Ampul.Neb) 3 ml INHALE Q4H PRN PRN Reason: Shortness of Breath/Wheezing Amlodipine Besylate (Amlodipine Besylate 2.5 Mg Tablet) 2.5 mg PO BEDTIME [facility]; Protocol Last Admin: 03/14/25 16:02 Dose: 2.5 mg Documented By: MATT Aspirin (Aspirin Enteric Coated 81 Mg Tablet.) 81 mg PO BEDTIME [facility] Atorvastatin Calcium (Atorvastatin Calcium 80 Mg Tablet) 80 mg PO BEDTIME [facility] Last Admin: 03/14/25 16:02 Dose: 80 mg Documented By: MATT Calcium Carbonate (Calcium Carbonate 750 Mg Tab.Chew) 750 mg PO Q4H PRN PRN Reason: Heartburn Magnesium Hydroxide (Milk Of Magnesia 30 Ml Oral.Susp) 30 ml PO DAILY PRN PRN Reason: Constipation Melatonin (Melatonin 3 Mg Tablet) 6 mg PO BEDTIME PRN PRN Reason: Insomnia Omeprazole (Omeprazole 20 Mg Capsule.) 20 mg PO DAILY@0630 [facility] Last Admin: 03/15/25 04:52 Dose: 20 mg Documented By: RAIN Ondansetron HCl (Ondansetron Hcl 4 Mg/2 Ml Vial) 4 mg IVPUSH Q8H PRN PRN Reason: Nausea and Vomiting Polyethylene Glycol (Polyethylene Glycol 3350 17 Gm Powd.Pack) 17 gm PO DAILY PRN PRN Reason: Constipation Senna (Sennosides 8.6 Mg Tablet) 17.2 mg PO BEDTIME [facility] Last Admin: 03/14/25 16:02 Dose: Not Given Documented By: MATT Non-Admin Reason: Patient Refused Sodium Chloride (0.9 % Sodium Chloride Flush 3 Ml Syringe) 3 ml IVFLUSH QSHIFT [facility] Last Admin: 03/15/25 02:45 Dose: Not Given Documented By: RAIN Non-Admin Reason: Previously Administered Warfarin Sodium (Warfarin Sodium 7.5 Mg Tablet) 7.5 mg PO MOTUWE@1800 SAPNA Warfarin Sodium (Warfarin Sodium 5 Mg Tablet) 5 mg PO SUTHFRSA@1800 [facility] Last Admin: 03/14/25 17:39 Dose: Not Given Documented By: MATT Non-Admin Reason: Patient took his own 7.5mg of coumadin today Labs 03/14/25 05:40 03/14/25 05:40 Quality Stroke Does the patient have a stroke diagnosis?: No Reason for No Anti-thrombotic by Day Two: N/A - Med Ordered VTE Prior VTE?: No VTE Risk Level:: Medical - moderate - high VTE Device Contraindication: N/A - Device Ordered VTE Drug Contraindication: N/A - Med Ordered
[2025-03-15 07:35] LABS: Hematocrit 45.7 % (42.0-52.0); Hemoglobin 15.3 g/dl (14.0-18.0); Mean Corpuscular HGB Conc 33.5 g/dl (31.0-36.0); Mean Corpuscular Hemoglobin 29.5 pg (27.0-33.0); Mean Corpuscular Volume 88.1 fL (80.0-98.0); NRBC Abs Auto 0.000 X10*3/uL (0.0-0.012); NRBC Pct Auto 0.0 /100WBC (0.0-0.2); Platelet Count 158 X10*3/uL (160-400); Red Blood Count 5.19 X10*6/uL (4.60-5.80); White Blood Count 8.3 X10*3/uL (4.8-10.8)
[2025-03-15 07:42] LABS: INTERNATIONAL NORM RATIO 1.6 (0.9-1.1); Prothrombin Time 18.8 SEC (10.9-12.4)
[2025-03-15 07:59] VITALS: BP 137/77; PULSE 74; RESP 19; TEMP 36.6; O2SAT 98
--- NOTE | 2025-03-15 09:51 | W.MHC.F2F ---
Service Date Service Date: 03/15/25 Encounter Date of encounter: 03/15/25 Reasons for Services Signs and symptoms assessed: Physical examination Reason for residential: monitoring of PT/INR Reason for physical therapy: home safety and mobility, therapeutic exercises, gait/transfer training, assess need for DME and energy conservation Homebound: Leaving the home is medically contraindicated at this time without the asist of a device and/or another person due th the listed conditions above and below. Reason homebound: unsteady gait / fall risk, fall risk related to blood pressure changes, poor balance / fall risk and psychologically impaired / unsafe Certification: Based on the above findings, I certify that this patient is confined to the home and needs intermittent residential care, physical therapy and/or speech therapy, or continues to need occupational therapy. The patient is under my care, and I have initiated the establishment of the plan of care. The patient will be followed by a physician who will periodically review the plan of care. Time Spent With Patient Time: Total time managing care of this patient today ____ minutes.
--- NOTE | 2025-03-15 09:53 | MHC.CM.PN ---
Addendum entered by Cornelia Rodriguez 03/15/25 12:45: PT WILL DC FOLLOWING HIS MRI Addendum entered by Cornelia Rodriguez 03/15/25 12:11: [facility] ACCEPTING PTS HCP HAS INDICATED SHE CANNOT TRANSPORT UNTIL 2330 OR 0000 HOURS CM WILL ARRANGE TRANSPORT Original Note: PT REPORTS HE LIVES ALONE AND IS INDEPENDENT WITH CARE HE HAS NO SERVICES OR DME HCP ON FILE PCP: GORDY CADE PT REFUSING STR, AGREEABLE TO [facility] REFERRALS MADE PT WILL DC HOME TODAY WITH [facility] FOR PT AND SN HCP WILL TRANSPORT
[2025-03-15 11:09] VITALS: BP 122/64; PULSE 64; RESP 18; TEMP 36.1; O2SAT 97
--- NOTE | 2025-03-15 11:45 | P.DS_ITS ---
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 Stroke , seizure, cardiac workup thus far negative for any acute changes. Patient remained neurov ascularly intact, no neurological deficits appreciated since admission. Patient was advised aspirin, patient deferred. Patient advised PTOT, patient deferred care has been challenging as he has been rude and noncompliant with staff and providers. Patient advised short-term rehab however patient deferred and would like to go home with [facility]. Patient advised to continue warfarin as it is therapeutic and also continue to take aspirin for further TIA/stroke prevention. Patient is already on statins, blood pressure seems to be under control,. Advised the patient to follow-up with PCP and neurology outpatient. Antithrombin 3 on Coumadin- patient's INR therapeutic, continue per his schedule, no changes made Substance use -heroin, oxycodone, marijuana Cows protocol Substance use consulted-patient HLD-continue home meds , statins home dose continue GERD continue omeprazole Patient's behavior is quite challenging-thus far no neurological deficits, given his substance use and not forthcoming with history and physical exam as documented by neurologist as well Patient deferred aspirin, PTOT, short-term rehab. Neurological consult outpatient This note is constructed using voice recognition software. While every effort has been made to ensure accuracy, wire harness design engineer errors may have been included. Time spent discussing smoking cessation with patient: more than 10 minutes Status at Discharge Functional status at discharge: independent ambulation Overall status at discharge: patient is progressing back to baseline Time Attestation Discharge Coordination Time (in mins): 35 Quality: Safe Use of Opioids Does Pt have an Active Cancer Diagnosis on the Problem List?: No Quality: Stroke Does the patient have a stroke diagnosis?: Yes Reason for No Anti-thrombotic at DC: N/A - Med Ordered Reason for No Anticoagulant at DC: N/A - Med Ordered Reason Not Initiating IV-Tpa: Drug treatment not indicated Reason for No Anti-thrombotic by Day Two: N/A - Med Ordered Reason for No Statin at DC: N/A - Med Ordered Physical Exam Vital Signs: Vital Signs: Last Vital Signs Temp 96.9 F 03/15/25 11:09 Pulse 64 03/15/25 11:09 Resp 18 03/15/25 11:09 BP 122/64 03/15/25 11:09 Pulse Ox 97 03/15/25 11:09 O2 Del Method Room Air 03/15/25 11:09 BMI result Body Mass Index 27.2 DS: Data Data Completed and Pending Labs on day of discharge: Laboratory Results - last 24 hr 03/15/25 06:58 WBC 8.3 RBC 5.19 Hgb 15.3 Hct 45.7 MCV 88.1 MCH 29.5 MCHC 33.5 RDW 13.4 Plt Count 158 L MPV 10.1 Absolute Nucleated RBC 0.000 Nucleated RBC % (auto) 0.0 PT 18.8 H INR 1.6 H Discharge Plan Discharge Anticipated Discharge Date/Time: 03/15/25 11:28 Patient Disposition: Home Health Service Discharge Diagnosis: Unclear etiology of acute onset brief udck-[id number] weakness Referrals: Jignesh PAUL [Outside] - 1 Week Humberto Alvarez MD [Primary Care Provider, Medical] - 1 Week Discharge Medications: New aspirin 81 mg Tablet,Delayed Release (Dr/Ec) 81 mg PO BEDTIME 30 Days Qty: 30 0RF Continued warfarin 5 mg tablet 7.5 mg PO MOTUWE@1800 omeprazole 20 mg capsule,delayed release(DR/EC) 1 cap PO DAILY@0630 atorvastatin 80 mg tablet 80 mg PO BEDTIME amlodipine 2.5 mg tablet 2.5 mg PO BEDTIME warfarin 5 mg tablet 5 mg PO SUTHFRSA@1800 Discharge Orders: Discharge Order (Routine); Ordered 03/15/25 Ordered By: Radha Hilton Diet: Low salt diet Activity on Discharge: As tolerated Stand Alone Forms: Patient Portal Discharge page Print Language: Polish Activity Restrictions/Additional Instructions: Overview A transient ischemic attack (TIA) is when blood flow to a part of your brain is blocked for a short time. A TIA causes stroke symptoms that can last for at l east a few minutes. Stroke symptoms include sudden weakness or loss of movement in a part of your body, confusion, vision changes, trouble speaking, and trouble walking or balancing. But unlike a stroke, a TIA doesn't cause lasting brain damage. TIAs are often warning signs of a stroke. Some people who have a TIA may have a stroke in the future. If you have symptoms of a stroke, call for emergency help right away. Quick treatment can help limit damage to the brain and increase the chance of recovery. You can take steps to help prevent a stroke. These steps include managing health problems that raise your risk, taking medicine that prevents blood clots, and having a heart-healthy lifestyle. This lifestyle includes being active, eating healthy foods, staying at a healthy weight, and not smoking. Follow-up care is a louis part of your treatment and safety.?Be sure to make and go to all appointments, and call your doctor or nurse advice line (811?in most provinces and territories) if you are having problems. It's also a good idea to know your test results and keep a list of the medicines you take. How can you care for yourself at home? Medicines Be safe with medicines. Take your medicines exactly as prescribed. Call your doctor or nurse advice line if you think you are having a problem with your medicine.If you take a blood thinner, such as aspirin, be sure you get instructions about how to take your medicine safely. Blood thinners can cause serious bleeding problems.Call your doctor or nurse advice line if you are not able to take your medicines for any reason.Do not take any nzzn-cnm-pktdgtp medicines or natural health products without talking to your doctor first.If you use hormonal control or hormone therapy for menopause, talk to your doctor. Ask if these are right for you. They may raise the risk of stroke in some people. Heart-healthy lifestyle Do not smoke. If you need help quitting, talk to your doctor about stop-smoking programs and medicines.Be active. If your doctor recommends it, get more exercise. Walking is a good choice. Bit by bit, increase the amount you walk every day. You also may want to swim, bike, or do other activities. Try to do at least 2? hours of moderate activity each week. It is fine to be active in blocks of 10 minutes or more throughout your day and week.Eat heart-healthy foods. These include vegetables, fruits, nuts, beans, lean meat, fish, and whole grains. Limit sodium and sugar.Stay at a healthy weight. Lose weight if you need to.Limit alcohol. Ask your doctor how much, if any, is safe for you. Staying healthy Manage other health problems that raise your risk of stroke. These include atrial fibrillation, diabetes, high blood pressure, and high cholesterol.If you think you may have a problem with alcohol or drug use, talk to your doctor.Avoid infections such as COVID-19, colds, and influenza (flu). Get the flu vaccine every year. Get a pneumococcal vaccine shot. If you have had one before, ask your doctor whether you need another dose. Stay up to date on your COVID-19 vaccines. When should you call for help? Call?911?anytime you think you may need emergency care. For example, call if: You have symptoms of a stroke. These may include: Sudden numbness, tingling, weakness, or loss of movement in your face, arm, or leg, especially on only one side of your body. Sudden vision changes. Sudden trouble speaking. Sudden confusion or trouble understanding simple statements. Sudden problems with walking or balance. A sudden, severe headache that is different from past headaches.Call?911?even if these symptoms go away in a few minutes.You feel like you are having another TIA. Watch closely for changes in your health, and be sure to contact your doctor or nurse advice line if you have any problems. For 31/12 nurse advice and general health information call [facility] Link at 811. Care Plan Goals: Follow-up with PCP Follow up with outpatient Neurology Being adherent to aspirin-patient deferred during this admission Refrain from substance use-patient deferred substance use team help and PTOT and STR placement this admission Patient is very rude to the staff Health Concerns: See above Plan of Treatment: See above Assessment: See above
[2025-03-23 11:29] LABS: Glucose, Whole Blood 97 mg/dL (60-115)
== END 2025-03-15 15:45 | disposition home health service (06) | DRG 816 ==
LOC: HO.ED 23:11 → HO.EDOVER 23:11 → HO.IMC 03-14 17:11
PROVIDERS: Nurse Practitioner Family; Admitting Provider Internal Medicine; Emergency Provider Student in an Organized Health Care Education/Training Program; PCP Internal Medicine; Visit Provider Student in an Organized Health Care Education/Training Program
DX: T40.1X1A Poisoning by heroin, accidental (unintentional), initial encounter (principal); D68.59 Other primary thrombophilia; T40.2X1A Poisoning by other opioids, accidental (unintentional), initial encounter; F17.210 Nicotine dependence, cigarettes, uncomplicated; K21.9 Gastro-esophageal reflux disease without esophagitis; G81.91 Hemiplegia, unspecified affecting right dominant side; E78.5 Hyperlipidemia, unspecified; Z71.6 Tobacco abuse counseling; Z79.01 Long term (current) use of anticoagulants; Z79.82 Long term (current) use of aspirin; Z79.899 Other long term (current) drug therapy
CPT/HCPCS: 36415; 70450; 70496; 70498; 70551; 80048; 80061; 80307; 82803; 82947; 83036; 83735; 83880; 84443; 84484; 85025; 85027; 85610; 85730; 93005; 97162; 99285; Q9967

== ENCOUNTER → 2025-03-13 19:38 | Outpatient (BNV) | payer BC, SELFPAY | PROVIDERS: Emergency Provider Student in an Organized Health Care Education/Training Program; PCP Internal Medicine; Visit Provider Radiology Diagnostic Radiology | DX: I63.9 Cerebral infarction, unspecified (principal) | CPT/HCPCS: 70450; 70496; 70498 ==

== ENCOUNTER → 2025-03-13 19:39 | Outpatient (BNV) | payer BC, SELFPAY | PROVIDERS: Admitting Provider Internal Medicine; Emergency Provider Student in an Organized Health Care Education/Training Program; PCP Internal Medicine; Visit Provider Internal Medicine | DX: I63.9 Cerebral infarction, unspecified (principal) | CPT/HCPCS: 93010 ==

== ENCOUNTER 2025-03-13 23:02 | Outpatient (BNV) | payer OTHER, SELFPAY | END 2025-03-15 14:57 | PROVIDERS: Admitting Provider Internal Medicine; Emergency Provider Student in an Organized Health Care Education/Training Program; PCP Internal Medicine; Visit Provider Radiology Diagnostic Radiology | DX: I67.82 Cerebral ischemia (principal); I63.81 Other cerebral infarction due to occlusion or stenosis of small artery; J32.2 Chronic ethmoidal sinusitis | CPT/HCPCS: 70551 ==

== ENCOUNTER → 2025-03-13 23:02 | Outpatient (BNV) | payer BC, SELFPAY | PROVIDERS: Admitting Provider Internal Medicine; Emergency Provider Student in an Organized Health Care Education/Training Program; PCP Internal Medicine; Visit Provider Student in an Organized Health Care Education/Training Program | DX: R53.1 Weakness (principal) | CPT/HCPCS: 99239; G0180 ==

== ENCOUNTER → 2025-03-13 23:02 | Outpatient (BNV) | payer BC, SELFPAY | PROVIDERS: Admitting Provider Internal Medicine; Emergency Provider Student in an Organized Health Care Education/Training Program; PCP Internal Medicine; Visit Provider Psychiatry & Neurology Neurology | DX: R53.1 Weakness (principal) | CPT/HCPCS: 99254 ==